=== PATIENT | female | born 1935 | race African-American/Black ===

== ENCOUNTER 2016-12-24 15:35 | Inpatient (IN) | payer MEDICARE, OTHER ==
--- NOTE | ~2016-12-24 | CT71 ---
[facility] A Service of [facility] & [facility] RADIOLOGY TEXT RESULTS PATIENT: LUCILA BLOCK LOCATION: [facility] 470-01 : 37 UNIT #: [id number] AGE: [address]: Rosa Lynne MD SEX: F ORDER DR: [id number] [facility] [address]. [place], [place] [address] [id number] I MR#: [id number] Acc #: [id number] NAME: LUCILA BLOCK. : 1935 SEX: F STUDY DATE/TIME: 12/24/2016 17:05 UNIT: CEDOF ROOM: 63439 STUDY DESCRIPTION: CT Head Wo Contrast Attending Physician: Ajay Avina M.D. Ordering Physician: Nimo Trevino M.D. Primary Care Physician: Vitaly Montenegro M.D. MEDICAL IMAGING REPORT This report is preliminary unless electronic signature is present EXAM CT brain without contrast 12/24/2016 COMPARISON 02/06/2009. HISTORY Generalized weakness after recent fall 1 week ago. TECHNIQUE Transaxial imaging of the brain was performed without contrast and compared to the patient's previous study. This CT examination was performed with one or more of the following radiation dose reduction techniques: automatic exposure control, adjustment of mA and/or kV according to patient size, and iterative reconstruction. FINDINGS There is generalized prominence of the ventricles and CSF containing spaces and this has increased significantly since the last study. Additionally, there are white matter changes in both hemispheres likely small vessel ischemia. The patient now has multiple lacunar infarctions in the basal ganglia and left thalamus which have appeared since the last study but appear largely chronic. Posterior fossa is unremarkable. There are atherosclerotic calcifications in the right vertebral artery and in the carotid siphons. The patient does have bilateral maxillary, bilateral ethmoid, and bilateral sphenoid sinus disease. No fractures are identified. Mastoid air cells are normally aerated. CONCLUSION 1. Generalized atrophy. Significant increase in small vessel deep white matter ischemic change in the periventricular region and development of multiple now chronic-appearing infarcts in both basal ganglia and in the left thalamus. [facility] A Service of [facility] & [facility] RADIOLOGY TEXT RESULTS PATIENT: LUCILA BLOCK LOCATION: [facility] 470-01 : 37 UNIT #: [id number] AGE: [address]: Rosa Lynne MD SEX: F ORDER DR: 2. Atherosclerotic calcifications in the carotid siphons and right vertebral. 3. Bilateral maxillary, ethmoid and sphenoid sinus disease. Dictated by... Jb Davis M.D. THIS IS AN ELECTRONICALLY VERIFIED REPORT Jb Davis M.D. at 12/27/2016 5:09 PM PEE/flaco TD: 12/25/2016 07:11 JOB #: [id number] MEDICAL IMAGING REPORT COPY
--- NOTE | ~2016-12-24 | EKG ---
PATIENT: LUCILA BLOCK UNIT #: [id number] Ventricular Rate: 64 BPM Atrial Rate: 64 BPM P-R Interval: 136 ms QRS Duration: 78 ms Q-T Interval: 432 ms QTC Calculation(Bezet): 445 ms P Austin: 71 degrees Calculated R Austin: 85 degrees Calculated T Austin: 56 degrees Diagnosis Line: Normal sinus rhythm Diagnosis Line: Baseline wander Nonspecific ST abnormality Diagnosis Line: Otherwise normal ECG Diagnosis Line: No previous ECGs available Diagnosis Line: Confirmed by ONEYDA HAMMONDS MD ([id number]) on 12/27/2016 Diagnosis Line: 7:23:01 AM INTERPRETING MD: NASRA PABON
--- NOTE | ~2016-12-24 | EKG ---
PATIENT: LUCILA BLOCK UNIT #: [id number] Ventricular Rate: 65 BPM Atrial Rate: 65 BPM P-R Interval: 148 ms QRS Duration: 84 ms Q-T Interval: 464 ms QTC Calculation(Bezet): 482 ms P Clayton: 75 degrees Calculated R Clayton: 84 degrees Calculated T Clayton: 70 degrees Diagnosis Line: Normal sinus rhythm Diagnosis Line: Nonspecific ST abnormality Otherwise normal ECG Diagnosis Line: When compared with ECG of 24-DEC-2016 15:03, Diagnosis Line: (unconfirmed) Diagnosis Line: No significant change was found Diagnosis Line: Confirmed by ONEYDA HAMMONDS MD ([id number]) on 12/27/2016 Diagnosis Line: 7:31:36 AM INTERPRETING MD: NASRA PABON
--- NOTE | ~2016-12-24 | CR63 ---
[facility] A Service of [facility] & [facility] RADIOLOGY TEXT RESULTS PATIENT: LUCILA BLOCK LOCATION: [facility] 470-01 : 37 UNIT #: [id number] AGE: [address]: Rosa Lynne MD SEX: F ORDER DR: [id number] [facility] [address] [place], [place] [address] [id number] I MR#: [id number] Acc #: [id number] NAME: LUCILA BLOCK : 1935 SEX: F STUDY DATE/TIME: 12/26/2016 14:32 UNIT: [facility] ROOM: [facility] STUDY DESCRIPTION: CR Chest 2 View Attending Physician: Rosa Lynne M.D. Ordering Physician: Ajay Avina M.D. Primary Care Physician: Vitaly Montenegro M.D. MEDICAL IMAGING REPORT This report is preliminary unless electronic signature is present EXAM AP and lateral chest 12/26/2016 HISTORY Cough and congestion and shortness of air and weakness for 3 weeks. FINDINGS 2 views of the chest demonstrate consolidation or atelectasis in the retrocardiac left lower lobe with limited evaluation of the left base due to under penetration. There is increased density in the left base compared to 12/24/2016. Probable small bilateral pleural effusions. Mild cardiac enlargement. Pulmonary vascularity is within normal limits. Moderate right thoracic curve. IMPRESSION 1. Increasing dense consolidation or atelectasis in the retrocardiac left lower lobe. 2. Probable small bilateral pleural effusions. 3. Mild cardiac enlargement. Dictated by... Prasad Platt M.D. THIS IS AN ELECTRONICALLY VERIFIED REPORT Prasad Platt M.D. at 12/27/2016 12:33 PM MARIA LUZ/jj TD: 12/27/2016 10:23 JOB #: [id number] MEDICAL IMAGING REPORT COPY
--- NOTE | ~2016-12-24 | CR72 ---
[facility] A Service [facility] RADIOLOGY TEXT RESULTS PATIENT: LUCILA BLOCK LOCATION: [facility] : 37 UNIT #: [id number] AGE: [address]: Ajay Avina MD SEX: F ORDER DR: [id number] [facility] [address]. [place], [place] [address] [id number] I MR#: [id number] Acc #: [id number] NAME: LUCILA BLOCK. : 1935 SEX: F STUDY DATE/TIME: 12/24/2016 14:55 UNIT: CEDOF ROOM: 88913 STUDY DESCRIPTION: CR Chest Single View Portable Attending Physician: Irene Hernandez M.D. Ordering Physician: Nimo Trevino M.D. Primary Care Physician: Vitaly Montenegro M.D. MEDICAL IMAGING REPORT This report is preliminary unless electronic signature is present EXAM Portable chest. DATE OF EXAM 12/24/2016 HISTORY Shortness breath, cough and weakness over the past 3 days. COMPARISON 10/08/2007 TECHNIQUE Single view chest was obtained. FINDINGS The patient is rotated to the left. Cardiomegaly is noted. The right lung is clear. No definite left-sided infiltrates are seen. Vascular markings are normal. IMPRESSION Cardiomegaly. The patient is rotated to the left. No definite infiltrates are seen. No definite changes are noted since the previous exam. Dictated by... Alireza Hanley M.D. THIS IS AN ELECTRONICALLY VERIFIED REPORT Alireza Hanley M.D. at 12/26/2016 9:40 PM RLF/jenyt [facility] A Service [facility] RADIOLOGY TEXT RESULTS PATIENT: LUCILA BLOCK LOCATION: [facility] 470-01 : 37 UNIT #: [id number] AGE: [address]: Ajay Avina MD SEX: F ORDER DR: TD: 12/24/2016 21:12 JOB #: [id number] MEDICAL IMAGING REPORT COPY
--- NOTE | ~2016-12-24 | US37 ---
[facility] A Service of [facility] RADIOLOGY TEXT RESULTS PATIENT: LUCILA BLOCK LOCATION: [facility] 470-01 : 37 UNIT #: [id number] AGE: [address]: Rosa Lynne MD SEX: F ORDER DR: [id number] [facility] [address] [address] [id number] I MR#: [id number] Acc #: [id number] NAME: LUCILA BLOCK. : 1935 SEX: F STUDY DATE/TIME: 12/26/2016 8:48 UNIT: [facility] ROOM: [facility] STUDY DESCRIPTION: US Carotid W/Doppler Bilateral Attending Physician: Rosa Lynne M.D. Ordering Physician: Radhames Jones M.D. Primary Care Physician: Todd Montenegro MEDICAL IMAGING REPORT This report is preliminary unless electronic signature is present EXAM Carotid ultrasound with Doppler, 12/26/2016 HISTORY 81-year-old female with syncope for 2-3 weeks. Confusion. Heart disease and congestive heart failure. Hypertension and hypercholesterolemia. COMPARISON Carotid duplex ultrasound 10/11/2007 FINDINGS Real time lang-scale, color Doppler, spectral Doppler analysis of bilateral carotid arteries was performed. There is mild plaque noted in both common carotid arteries, carotid bulbs, internal carotid arteries and external carotid arteries. Peak systolic velocities are as follows: Right common carotid artery 1.57 meters per second. Right internal carotid artery 1.32 meters per second. Left common carotid artery 1.33 meters per second. Left internal carotid artery 1.16 meters per second. ICA/CCA ratio measures 0.84 on the right and 0.7 on the left. There is evidence of 50%-69% stenosis more proximally in the right common carotid artery and 50%-69% stenosis in the region of the carotid bulb and proximal right ICA based on NASCET criteria. There is evidence of a more proximal stenosis of 50%x69% in the left common carotid artery based on NASCET criteria. Antegrade vertebral flow was present bilaterally. IMPRESSION [facility] A Service of [facility] RADIOLOGY TEXT RESULTS PATIENT: LUCILA BLOCK LOCATION: [facility] 470-01 : 37 UNIT #: [id number] AGE: [address]: Rosa Lynne MD SEX: F ORDER DR: 1. 50%-69% stenosis in the proximal right common carotid artery by NASCET criteria. 2. 50%-69% stenosis in the region of the right carotid bulb and proximal right ICA based on NASCET criteria. 3. 50%-69% stenosis in the proximal left common carotid artery based on NASCET criteria. Dictated by... Esequiel Hood M.D. THIS IS AN ELECTRONICALLY VERIFIED REPORT Esequiel Hood M.D. at 12/28/2016 8:28 AM SHANIQUA/bucky TD: 12/27/2016 09:01 JOB #: [id number] MEDICAL IMAGING REPORT Page 1 of 1 COPY
--- NOTE | ~2016-12-24 | CO ---
Unit #: [id number] #: [id number] Patient: LUCILA WILLARD [id number] [address] [place], [place] [address] [id number] I MR#: [id number] NAME: LUCILA WILLARD. ROOM: 470 Age: 81 Sex: F Admission Date: 12/25/2016 : 1935 Attending Physician: Ajay Avina M.D. Primary Care Physician: Vitaly Montenegro M.D. Consultation Date: 12/25/2016 CONSULTATION REPORT REASON FOR CONSULT Acute on chronic kidney disease. HISTORY OF PRESENT ILLNESS Ms. Willard is a 81-year-old female with some baseline dementia, who was brought in basically for failure to thrive. Overall, the patient is a poor historian and states that she just came in because she "felt sick." She had also been complaining about some underlying weakness and had a fall at home about two weeks ago according to the admission records. Last hospitalization was in 2016 at [facility] for altered mental status at that time with a UTI. The patient does complain about some breathing issues this morning and she does have a cough. She had reported a poor appetite when coming in, but no vomiting or diarrhea. No urinary complaints. I do note that she was taking some Advil p.r.n. at home. It is not clear how much she was actually taking. To my knowledge, she has no history of kidney stones and she denied these as well. She has been getting fluids overnight and a creatinine has come down some. PAST MEDICAL HISTORY Significant for chronic kidney disease, stage 3; hypertension; diabetes; proteinuria; prior tobacco abuse with probable COPD; history of stroke and TIA; degenerative joint disease; gout; hyperlipidemia; peripheral vascular disease; hypothyroidism; dementia; and colon cancer. PAST SURGICAL HISTORY Colon resection, cataract surgery, hysterectomy, appendectomy. HOME MEDICATIONS Advil p.r.n., aspirin daily, Restasis eye drops, Aricept 10 mg a day, Coreg 25 mg b.i.d., Ditropan 5 mg at bedtime, Norvasc 2.5 mg a day, Celexa 10 mg a day, NovoLog insulin b.i.d., Advil p.r.n., Benadryl p.r.n. ALLERGIES She has no known drug allergies. FAMILY HISTORY There is a family history of hypertension and diabetes. She does not think there is any family history of kidney disease or dialysis. SOCIAL HISTORY The patient lives with her granddaughter. She is a former smoker. She cannot remember how long it has been since she quit. No alcohol or drug use. She is a full code at this time. Unit #: [id number] #: [id number] Patient: LUCILA WILLARD REVIEW OF SYSTEMS A complete 12-point review of systems was difficult secondary to her mental status and underlying dementia. She denies any headaches or dizziness. No nosebleed. No sore throat or earache. No palpitations. No hemoptysis. No bright red blood per rectum or melena. No dysuria or hematuria. No swelling. No rashes or itching. No flank pain. No fevers or chills. No weight loss. No bleeding issues. No intolerance to heat or cold. Unless otherwise indicated, the review of systems was negative. PHYSICAL EXAMINATION VITAL SIGNS: The patient is afebrile. Pulse 62; respiratory rate 20; blood pressure 149/106, highest blood pressure has been 192/78. GENERAL: This is a pleasant 81-year-old female, lying on her side in bed, alert and in no acute distress. HEENT: Head is atraumatic and normocephalic. Eyes show pink conjunctivae with no scleral icterus. No nasal drainage or nosebleed. Oropharynx is moist. NECK: Shows no rigidity. HEART: Regular rate and rhythm with distant S1 and S2. No gallop or rub appreciated. No significant murmur. LUNGS: Have bilateral diffuse expiratory wheezing with some rhonchi. Breathing is unlabored at rest. ABDOMEN: Obese, soft, nontender. Bowel sounds are present. EXTREMITIES: No lower extremity cyanosis or pitting edema. SKIN: Dry without rashes. MUSCULOSKELETAL: No CVA tenderness to palpation. NEUROLOGIC: Cranial nerves appear grossly intact. LYMPHATIC: There is no neck or cervical lymphadenopathy. PSYCHIATRIC: Mood and affect appear normal. She does appear to be alert and mostly oriented. DIAGNOSTIC STUDIES LABORATORY RESULTS: Hemoglobin A1c 5.8. CK level 260. Chemistry this morning noteworthy for a potassium of 3.7, bicarb 21, creatinine down to 2.2, albumin just 2.3, phosphorus 4.2. Cholesterol 137, LDL of 79. Troponin 0.38. CBC was unremarkable. TSH level was normal. UA on admission showed 3+ protein with a few red blood cells and some hyaline casts. Flu screen negative. Admission creatinine was 2.7. Prior creatinine in our system here was 1.5 in 02/2009, but it had been as high as 1.8 during that admission. She did have a 24-hour urine protein collection in 10/2007 that was 290 mg. urinalyses here have consistently shown some proteinuria. IMAGING STUDIES: CT of the head showed atrophy and nothing acute. Chest x-ray showed no acute disease, but cardiomegaly. Prior kidney ultrasound in 10/2007 showed a small cyst in the left kidney. ASSESSMENT AND PLAN 1. Acute kidney injury on underlying chronic kidney disease, stage 3. It does look like she has a baseline chronic kidney disease based on old checks. Certainly, she could have some progression of her kidney disease with her diabetes and hypertension over the last eight years, so it is not known what her exact baseline is now. She may have had a little acute kidney injury from poor p.o. intake, which seems to have gotten better with fluids. I will discontinue her fluids due to her shortness of breath. We await results of kidney ultrasound. I will be quantitating her urinary protein and we do need to get better control of her blood pressure, which may be the biggest issue with her kidneys. Unit #: [id number] #: [id number] Patient: LUCILA WLILARD 2. Hypertension. Dr. Avina has already raised her blood pressure medicines and we will monitor response. 3. Proteinuria. It is not clear why she is not on an MOISÉS inhibitor or an angiotensin receptor tona. We would like to consider this during the course of this admission, but if she needs a heart catheterization, we might want to hold off on this for the time being. 4. Non ST-elevation myocardial infarction with Cardiology seeing. 5. Probable chronic obstructive pulmonary disease with prior tobacco abuse. 6. History of stroke in the past. 7. Diabetes with apparent good control based on her hemoglobin A1c. 8. Shortness of air. We will stop her fluids and give her a dose of Lasix. Chest x-ray was noted as above. This may be related to her heart issues and we will have to check her most recent echo that will be ordered here. We would like to thank Dr. Hernandez for this consult and the opportunity to participate in the evaluation and care of Ms. Willard. Dictated by... Zoltan Moore Jr., M.D. PIPE/mahesh TD: 12/26/2016 02:08 JOB #: [id number] CONSULTATION REPORT X Zoltan Moore MD X CONSULTATION REPORT
--- NOTE | ~2016-12-24 | CO ---
Unit #: [id number] #: [id number] Patient: LUCILA BLOCK [id number] [address] [place], [place] [address] [id number] I MR#: [id number] NAME: LUCILA BLOCK. ROOM: 470 Age: 81 Sex: F Admission Date: 12/24/2016 : 1935 Attending Physician: Rosa Lynne M.D. Primary Care Physician: Todd Montenegro CONSULTATION REPORT HISTORY OF PRESENT ILLNESS This is a 81-year-old female with a past medical history of dementia, hypertension, hyperlipidemia, diabetes, peripheral vascular disease, colon cancer, frequent falls, hypothyroidism. She cannot tell me much about her medical history or what medications she is on and who her doctors are. She has been sick with complaints of congestion, productive cough, and shortness of breath for the last 4 to 5 days, so she decided to come to the ER for evaluation of these symptoms. While in the ER, her troponins was found to be elevated at 0.4. She denies any chest pain. She denies nausea. She denies vomiting. She denies diaphoresis. She has reported that she has passed out with loss of consciousness one to two times in the past with her last syncopal episode 2 to 3 weeks ago. She has chronic urinary incontinence. She does have complaint of some shortness of breath and throat tightness. She denies any loss of bowel and bladder function during the syncopal episode, but like previously stated she has chronic urinary incontinence. Apparently, her family states that she has had increased confusion for 3 to 4 weeks in addition to productive cough and shortness of breath. She has not had reported any fever or decreased appetite or weight loss to her family. EKG done in the ER showed normal sinus rhythm with a rate of 64 beats per minute. No obvious ST depression were seen. Cardiology consult was asked for elevated troponin. While also in the ER after she was admitted, her blood glucose was noted to be 35. This was treated appropriately per nursing protocol. Cardiac testing includes questionable cardiac cath approximately 5 years ago at [facility], but there are no records. Dr. Fisher tried to obtain these records. Her family states that in 05/2016, she was admitted at [facility] and since then she has really not been doing that well at all. PAST SURGICAL HISTORY Colon resection, cataract, hysterectomy, appendectomy. SOCIAL HISTORY She lives with her granddaughter. She uses a cane for ambulation. She is a former smoker. No alcohol use and she is a full code. FAMILY HISTORY Notable for diabetes and hypertension upon chart review. ALLERGIES Unit #: [id number] #: [id number] Patient: LUCILA BLOCK No known allergies. HOME MEDICATIONS Advil 200 mg tablet as needed every 6 hours p.r.n. for pain, Aspirin 81 daily, Restasis eye drops daily, donepezil 10 mg daily, Coreg 25 b.i.d., Ditropan 5 mg in the evening, Norvasc 2.5 daily, citalopram 10 mg daily, NovoLog 70/30 of 15 units subcutaneous b.i.d., Benadryl 25 mg q.4 hours as needed p.r.n. for allergies. REVIEW OF SYSTEMS A complete review of systems is negative except noted in the HPI. The patient was unable to provide much history to me as she is confused and has altered mental status. PHYSICAL EXAMINATION VITAL SIGNS: Include temperature afebrile 98.3, pulse 69, respirations 16, blood pressure 155/62, oxygen saturation is 95% on room air. GENERAL: She is an female, who is in moderate respiratory distress upon being seen in the ER. She is well developed and well nourished. LUNGS: Bilateral rales, crackles with rhonchi, labored breathing, inspiratory and expiratory wheezing. CARDIOVASCULAR: She is in a regular rate and rhythm with S1, S2 noted and positive for systolic ejection murmur heard best at the apex. ABDOMEN: Soft and obese. Positive bowel sounds. EXTREMITIES: Show 1+ edema with positive pulses. SKIN: Warm and dry. NEUROLOGIC: She is actually able to tell me where she is, who she is, but she was unsure of any historical details. DIAGNOSTIC STUDIES IMAGING STUDIES: Chest x-ray shows no acute findings. CT of the head was done and showed no acute abnormality. CARDIOVASCULAR STUDIES: EKG shows normal sinus rhythm with a rate of 64 beats per minute, possible left atrial enlargement. There appeared to be like 0.[address] depression in inferior leads, but this is unchanged from her previous EKG. LABORATORY RESULTS: Include sodium 141, potassium 3.7, chloride 114, CO2 of 21, BUN 29, creatinine 2.2, glucose 147. Troponin was initially found to be 0.22, peaked to 0.40, and today is 0.38. A1c was 5.8. TSH is 1.39. Total cholesterol 137, triglycerides 147, LDL 79, HDL 29. Influenza A and B were both negative. WBC 5.7, platelets 193, hemoglobin 13.2, hematocrit 40.9. IMPRESSION 1. Acute myocardial infarction type 2 likely elevated troponin related to acute kidney injury and volume overload. 2. Diabetes. 3. Hypertension. 4. Obesity. 5. Acute kidney injury, creatinine 2.2 with chronic kidney disease stage 3, possible acute congestive heart failure. 6. Altered mental status. 7. Peripheral vascular disease. 8. History of colon cancer, status post resection and chemotherapy. 9. History of hypothyroidism. Unit #: [id number] #: [id number] Patient: LUCILA BLOCK 10. Dementia. PLAN She is being admitted in observation to an intermediate level bed. She can have a heart healthy diet after a bedside swallow study per Dr. Fisher. Cardiology will obtain a 2D echo to evaluate her valves since there were no records from her most recent admission to [facility] in 05/2016. We will check a 12-lead EKG in the a.m. and trend her troponins every 6 hours. Currently, her troponin has plateaued with peak of 0.40. We will check a BMP and discontinue her IV fluids, magnesium level in the morning, troponin in the morning, and increase her hydralazine to 50 mg p.o. t.i.d. with parameters if hypotension occurs for her hypertension. Further plan, once echo results are known and seen by Dr. Queen. However, she will possibly need a cath on Tuesday after her renal status improve. We agree with diuresing her. She is currently on Lasix. She has bilateral rales, rhonchi, productive sputum, and lower extremity edema. We will monitor her electrolytes closely, replace as needed. Restrict her fluids and continue Coreg, Norvasc, and increase hydralazine for blood pressure control. Dictated by... Vania Delgado APRN for Germán Queen M.D. CORIN/mahesh TD: 12/28/2016 00:05 JOB #: [id number] CONSULTATION REPORT Page 1 of 1 X X CONSULTATION REPORT
--- NOTE | ~2016-12-24 | HP ---
Unit #: [id number] #: [id number] Patient: LUCILA BLOCK [id number] [place] [address] [place], [place] [address] [id number] I MR#: [id number] NAME: LUCILA BLOCK. ROOM: 52270 Age: 81 Sex: F Admission Date: 12/24/2016 : 1935 Attending Physician: Irene Hernandez M.D. Primary Care Physician: Vitaly Montenegro M.D. HISTORY AND PHYSICAL CHIEF COMPLAINT Generalized weakness. HISTORY OF PRESENT ILLNESS The patient is a 81-year-old female with past medical history of diabetes, hypertension, hyperlipidemia, peripheral vascular disease, gout, degenerative joint disease, colon cancer, dementia, hypothyroidism, who presented to the emergency department for evaluation of the above. History is obtained from chart review and discussion with the ER staff as well as from the patient and her son and daughter who are at bedside. The patient was apparently hospitalized at [facility] in May of 2016 for altered mental status, hypoglycemia, uncontrolled high blood pressure and urinary tract infection per the family (no records). She was then discharged to rehab and ultimately home. She has had generalized weakness and falls since that time. The last fall was apparently two weeks prior to admission. The reason for coming to the hospital today was for generalized weakness that has been increasing. She has also had increased confusion. Family states that she has had a three to four week history of intermittently productive cough and shortness of breath. She has not had any fever. She has had decreased appetite for the past week. She has had an issue with her teeth and has not wanted to eat. There has been no vomiting or diarrhea. She is incontinent of urine but denies any urinary symptoms. In the emergency department a CT of the head was done and showed no acute abnormality. Chest x-ray showed nothing acute. Laboratory is notable for creatinine of 2.7, initial troponin was 0.22. EKG showed normal sinus rhythm with a rate of 64 beats per minute. She is being admitted to [facility] for evaluation and further treatment. At the time of my evaluation an Accu-Chek was done and noted to be 35. PAST MEDICAL HISTORY 1. Admission to [facility] May of 2016 for hypoglycemia, uncontrolled diabetes, altered mental status, urinary tract infection. She was discharged to rehab (no records). 2. Admission to [facility] February 06 through February 10, 2009 for possible TIA. 3. Diabetes. 4. Degenerative joint disease. 5. Gout. 6. Hypertension. 7. Hyperlipidemia. Unit #: [id number] #: [id number] Patient: LUCILA BLOCK 8. Peripheral vascular disease. 9. Hypothyroidism. 10. Dementia. The patient is oriented to person and place. She may or may not know the year at baseline. 11. Colon cancer, status post resection and chemotherapy. PAST SURGICAL HISTORY 1. Colon resection. 2. Cataract surgery. 3. Hysterectomy. 4. Appendectomy SOCIAL HISTORY The patient lives with her granddaughter. She walks with a cane. She is a former smoker. There is no alcohol use. Her code status is a full code. FAMILY HISTORY Family history is notable for diabetes and hypertension. ALLERGIES No known allergies. HOME MEDICATIONS Home medications include: 1. Advil p.r.n. 2. Aspirin 81 mg daily. 3. Restasis eye drops daily. 4. Donepezil 10 mg daily. 5. Coreg 25 mg b.i.d. 6. Ditropan 5 mg q.p.m. 7. Norvasc 2.5 mg daily. 8. Escitalopram 10 mg daily. 9. NovoLog 70/30 15 units subcu b.i.d. 10. Advil 200 mg q.6 h. p.r.n. 11. Benadryl 25 mg q.4 h. p.r.n. REVIEW OF SYSTEMS A complete review of systems is negative except as indicated in the HPI. The patient had a cardiac catheterization more than five years ago [address] [facility]. DIAGNOSTIC STUDIES CARDIOVASCULAR: EKG shows normal sinus rhythm with a rate of 64 beats per minute. IMAGING: Chest x-ray shows cardiomegaly but no acute abnormality. LABORATORY: Comprehensive metabolic panel notable for glucose of 69, BUN and creatinine 29 and 2.7 respectively, total protein is 5.7, albumin is 2.7. Complete blood count is essentially normal. Troponin initially was 0.22, repeat 0.13. Urinalysis notable for 3+ protein, 5 to 10 red blood cells. Rapid flu screen is negative. INR is 1.1. PHYSICAL EXAMINATION VITAL SIGNS: Temperature is 98.3. Pulse 69. Respirations 16. Blood pressure 155/62. Oxygen saturation 95% on room air. GENERAL: The patient is an -Somali female who is sleeping but wakes to voice. Unit #: [id number] #: [id number] Patient: LUCILA BLOCK HEENT: The head is atraumatic. Mucous membranes are moist. NECK: Neck is supple. Trachea is midline. CARDIOVASCULAR: Regular rate and rhythm. LUNGS: Demonstrate a few scattered rhonchi. Breathing is not labored with conversation. ABDOMEN: Abdomen is soft, nontender, with bowel sounds present in all four quadrants. EXTREMITIES: Extremities are nontender with pedal edema. NEUROLOGIC: The patient is awake. She is oriented to person and place. She knew it was Tuesday but was not sure of the month or year. PSYCHIATRIC: The patient is cooperative. SKIN: Skin of examined areas is warm and dry. ASSESSMENT The patient is a 81-year-old female with: 1. Generalized weakness. 2. Altered mental status. 3. Hypoglycemia. The patient received an amp of D50 in the emergency department. She passed a bedside swallow and is currently eating crackers and peanut butter. A repeat Accu-Chek is pending. 4. Acute kidney injury. The patient's creatinine was 1.5 on February 10, 2009. It is 2.7 today. It appears to be prerenal in etiology as the patient has not been eating but she may have baseline renal impairment as well as it looks like her creatinine has been as high as 2.1 in the past. She has seen Dr. Avelar. Family is not aware of her seeing anybody on a regular basis. 5. Elevated troponin, initially 0.22 with a repeat 0.13. She had a cardiac catheterization more than five [address] ago [address] [facility]. 6. Hypertension. 7. Hyperlipidemia. 8. Peripheral vascular disease. 9. Gout. 10. Degenerative joint disease. 11. Colon cancer, status post resection and chemotherapy. 12. Dementia. 13. Hypothyroidism. 14. Former smoker. PLAN 1. Admit for observation to intermediate level. 2. Healthy heart consistent carb diet if passes bedside swallow. 3. Bedrest. 4. Fall precautions. 5. PT and OT to evaluate and treat. 6. TSH, B12 and folate. 7. Neuro checks. 8. Frequent Accu-Cheks. 9. Hold insulin. 10. Hemoglobin A1C. 11. TSH. 12. Urine sodium, creatinine and eosinophils. 13. Renal ultrasound for further evaluation of acute kidney injury. 14. Check CPK. 15. No NSAIDs. 16. Normal saline at 75 mL an hour. 17. Serial cardiac enzymes. 18. Fasting lipid panel. Unit #: [id number] #: [id number] Patient: LUCILA BLOCK 19. Consult Dr. Queen about elevated troponin. 20. Supplemental oxygen. 21. Get records from [facility] including cardiac cath. 22. Repeat labs in the morning. 23. SCDs for DVT prophylaxis. 24. Additional workup and consultants based on above. Dictated by Marcelle Braga/keyana TD: 12/24/2016 22:47 JOB #: [id number] HISTORY AND PHYSICAL X Irene Hernandez MD X HISTORY AND PHYSICAL
--- NOTE | ~2016-12-24 | A ---
[facility] Nutrition Therapy DATE: 12/27/16 Patient: LUCILA BLOCK Physician: MELODY Address: [address] [place] [address] Room/Bed: [address] [place] [address], Zip: [place] [address] Admit Date: 12/24/16 Date of : 37 Height: 5 7 Weight: 186 84.6 NUTRITIONAL ASSESSMENT: REASON: 4 NUTRITION RISK PT RE: WEIGHT LOSS + POOR PO INTAKE, ALSO CONSULT RECEIVED PT IS 81 Y.O. FEMALE ADMITTED FOR GENERALIZED WEAKNESS PMH: DEMENTIA, CVA, DM, CKD STAGE 3, HTN, TIA, COPD, DJD, COLON CA S/P RESECTION, HLD, GOUT, PVD, HYPOTHYROIDISM Anthropometrics: 5'7", WT: 186-215# (85 KG-98 KG) (WEIGHTS HAVE RANGED SINCE ADMIT), BMI: 29.1-33.7 Labs: GLU: 156, BUN: 37, CREAT: 2.6, CA+:8.1, ALB: 2.4, GFR: 22.8 Meds: LIPITOR, LEVEMIR, NOVOLOG, NACL I/O & Bowel function: 620/1350 Skin Integrity: NO KNOWN SKIN ISSUES Estimated Nutrition Needs: INCREASED NEEDS 2' ?WEIGHT LOSS NOTED Assessment: CHART REVIEWED AND EVENTS NOTED. PT SEEN FOR WEIGHT LOSS + POOR PO INTAKE. PT SLIGHTLY CONFUSED AT TIME OF VISIT. PT REPORTS DECREASED PO INTAKE 2' DECREASED APPETITE PAST WEEK D/T "NOT FEELING WELL". PT ADDS SHE DOES NOT LIKE THE FOOD HERE AT [facility]. PT REPORTS WEIGHT LOSS BUT UNABLE TO IDENTIFY AMOUNT AND TIME FRAME (H DEMENTIA). PT'S LAST WEIGHTS WERE RECORDED BACK IN 2008. THIS RD ENCOURAGED ADEQUATE KCAL AND PROTEIN INTAKE, PT AGREED TO ENSURE PUDDING BID, RD WILL ORDER. PT NOT APPROPRIATE FOR DIET EDUCATION AT THIS TIME. Dx: INADEQUATE PROTEIN-ENERGY INTAKE R/T DECREASED APPETITE, OVERALL CURRENT CLINICAL CONDITION AEB PT REPORT ABOVE. Intervention: 1. 2 GM NA DIET 2. ENSURE PUDDING BID Monitoring, Evaluation and Goals: 1. PO INTAKE; CONSUME >50% OF MEALS W/NO C/O N/V/D 2. WEIGHTS; PREVENT ANY FURTHER UNINTENTIONAL WEIGHT LOSS 3. LABS; WNL 4. GI; PROMOTE REGULAR GI FUNCTION MONITOR: [facility] Nutrition Therapy DATE: 12/27/16 Patient: LUCILA BLOCK Physician: MELODY Address: [address] [place] [address] Room/Bed: [address] [place] [address], Zip: [place] [address] Admit Date: 12/24/16 Date of : 37 Height: 5 7 Weight: 186 84.6 -PO INTAKE/APPETITE -WEIGHTS -SUPPLEMENT INTAKE Recommendations: 1. PLEASE ORDER VARSHA ENSURE PUDDING BID W/MEALS FOR SUPPLEMENTAL NUTRITION 2. RECOMMEND TO CHANGE CURRENT DIET ORDER TO REGULAR, IF PO INTAKE MINIMAL 3. APPRECIATE FAMILY AND STAFF TO ENCOURAGE ADEQUATE KCAL AND PROTEIN INTAKE RD WILL F/U PER PROTOCOL PT IS MILD/MODERATELY COMPROMISED Respectfully, EDITH VELASQUEZ MS, RD, LD Food and Nutritional Services [facility] cc: client file
--- NOTE | ~2016-12-24 | DS ---
Unit #: [id number] #: [id number] Patient: LUCILA WILLARD [id number] [address] [id number] I MR#: [id number] NAME: LUCILA WILLARD. ROOM: 470 Age: 81 Sex: F Admission Date: 12/24/2016 : 1935 Discharge Date: 12/28/2016 Attending Physician: Rosa Lynne M.D. Primary Care Physician: Vitaly Montenegro M.D. DISCHARGE SUMMARY PRINCIPAL DIAGNOSES 1. Non ST segment elevation myocardial infarction type 2. 2. Acute kidney injury, prerenal. 3. 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 Discharge creatinine is 2.5. Baseline appears to be approximately 2.2. 4. Hypoglycemia, insulin induced. 5. Diabetes mellitus type 2, insulin requiring and too tightly controlled with hemoglobin A1c of 5.8. 6. Hypertension. 7. Chronic obstructive pulmonary disease. 8. Toxic metabolic encephalopathy secondary to non ST segment elevation myocardial infarction and hypoglycemia resolved. 9. Vascular dementia. 10. Proteinuria. 11. Moderate protein malnutrition. 12. Peripheral arterial disease with both right and left carotid stenoses of 59% to 69%. 13. Deconditioning. 14. Obesity. 15. Depression. 16. Urge incontinence. 17. Hyperlipidemia. CONSULTANTS Dr. Queen - cardiology and Dr. Moore - nephrology. PROCEDURES 1. 2D dimensional echocardiogram on 12/26/2016 with ejection fraction of 60% to 65%. Moderate to severe concentric left ventricular hypertrophy noted. Left ventricular size is decreased. Impaired relaxation noted. Mild tricuspid regurgitation. Mild to moderate pericardial effusion. 2. Chest x-ray on 12/26/2016 with small bilateral pleural effusions, atelectasis in the retrocardiac left lower lobe noted. Cardiac enlargement noted. 3. Bilateral carotid Doppler with 50% to 69% stenosis of the proximal right common carotid artery and right carotid bulb and proximal right ICA. 50% to 69% stenosis of the proximal left common carotid artery. Bilateral renal ultrasound on 12/25/2016, which was normal. 4. CT of the head without contrast on 12/24/2016 with generalized atrophy. Small vessel deep white matter ischemic change noted. Chronic infarction of both basal ganglia in the left thalamus noted. Atherosclerotic calcification of carotid siphons and right vertebral artery noted. Bilateral sinus disease noted. Unit #: [id number] #: [id number] Patient: LUCILA WILLARD CLINICAL HISTORY AND HOSPITAL COURSE Ms. Willard is a 81-year-old -Malawian female brought to the emergency department with increasing weakness. She has been having increasing weakness and falls since 05/2016. She has also had intermittently productive cough and shortness of breath and decreased appetite. She has not been eating well. In the emergency department creatinine was elevated at 2.7 up from a last known baseline of 1.9 and troponin was mildly elevated at 0.22. The patient was subsequently admitted. In regards to patient's elevated troponin cardiology was consulted. Troponin peaked at 0.22 then decreased. EKG did not reveal any ST abnormalities and echo was as noted above. Given patient's other medical conditions and the renal failure, it is felt that she probably has a very small type 2 NSTEMI and will continue only medical management at this point. In regards to the patient's renal dysfunction, Dr. Moore was consulted. The patient was placed on diuretics due to their concern but perhaps she has pulmonary edema, but renal function worsened and diuretics were held. On the day of discharge, creatinine is stable at 2.5 and this appears to be very close to her baseline. She will followup with nephrology as an outpatient. I am going to hold MOISÉS inhibitor and/or ARB at this time due to renal dysfunction and perhaps it can be reinitiated as an outpatient. Patient also had significant hypertension but medications were adjusted and blood pressure is now well controlled. Patient's other chronic condition remained stable. She is seen by physical therapy who is suggesting rehab and she will be discharged to rehab when arranged. Patient did have hypoglycemia upon presentation. Her A1c is significantly low at 5.8 and I suspect she is having episodes of significant hypoglycemia at home, followed by hyperglycemia due to her insulin regimen of 70/30 at home. She has been changed to a four shot regimen here and sugars have been very stable in the 130s to 200 on this regimen. I think these sugars will remained controlled on a controlled diet. DISCHARGE CONDITION Stable. DISCHARGE STATUS Discharge to rehab. DISCHARGE MEDICATIONS 1. Combivent nebulizer treatments 3 mL 4 times daily p.r.n. for shortness of breath. 2. Lexapro 10 mg daily. 3. Coreg 25 mg b.i.d. 4. Norvasc 10 mg daily. 5. Aricept 10 mg daily. 6. Ditropan 5 mg each evening. 7. Lipitor 80 mg at bedtime. 8. Levemir 10 units subcutaneously at night. 9. NovoLog 5 units subcu t.i.d. with meals with an associated low dose sliding scale. Unit #: [id number] #: [id number] Patient: LUCILA WILLARD 10. Restasis one drop two both eyes daily. 11. Aspirin 81 mg daily. 12. Symbicort 80/4.5 two puffs b.i.d. 13. Bactroban. DISCHARGE INSTRUCTIONS Patient is instructed to follow a heart healthy CCV diet and she will continue Accu-Cheks a.c. and h.s. with sliding scale. She can increasing her activity as tolerated. FOLLOWUP The patient is to follow up with basic metabolic panel on 01/04/2017 with the results faxed to Dr. Dhiraj Avelar and/or Dr. Joel Moore. She should followup with Dr. Avelar in approximately four weeks and followup with Dr. Queen in approximately four weeks as well. Can re-evaluate for addition of MOISÉS or ARB in followup. She also needs outpatient referral to vascular surgery in regards to her right and left carotid arterial disease but given lack of stroke while hospitalized, I think this can be done as an outpatient. Dictated by... Rosa Lynne M.D. MAYELA/daniella TD: 12/28/2016 08:25 JOB #: [id number] DISCHARGE SUMMARY Page 1 of 1 X Rosa Lynne MD X DISCHARGE SUMMARY
--- NOTE | ~2016-12-24 | EKG ---
PATIENT: LUCILA BLOCK UNIT #: [id number] Ventricular Rate: 57 BPM Atrial Rate: 57 BPM P-R Interval: 158 ms QRS Duration: 80 ms Q-T Interval: 470 ms QTC Calculation(Bezet): 457 ms P [place]: 15 degrees Calculated R [place]: 104 degrees Calculated T [place]: 90 degrees Diagnosis Line: Sinus bradycardia Diagnosis Line: Rightward axis Diagnosis Line: Borderline ECG Diagnosis Line: When compared with ECG of 26-DEC-2016 07:26, Diagnosis Line: (unconfirmed) Diagnosis Line: No significant change was found Diagnosis Line: Confirmed by WILL VELA MD ([id number]) on Diagnosis Line: 12/27/2016 8:04:12 AM INTERPRETING MD: DANE PABON
--- NOTE | ~2016-12-24 | US77 ---
[facility] A Service of [facility] RADIOLOGY TEXT RESULTS PATIENT: LUCILA BLOCK LOCATION: [facility] 470 : 37 UNIT #: [id number] AGE: [address]: Ajay Avina MD SEX: F ORDER DR: [id number] [facility] [address] [facility] [place], [place] [address] [id number] I MR#: [id number] Acc #: [id number] NAME: LUCILA BLOCK. : 1935 SEX: F STUDY DATE/TIME: 12/25/2016 10:47 UNIT: [facility] ROOM: [facility] STUDY DESCRIPTION: US Kidney Bilateral Complete Attending Physician: Ajay Avina M.D. Ordering Physician: Irene Hernandez M.D. Primary Care Physician: Vitaly Montenegro M.D. MEDICAL IMAGING REPORT This report is preliminary unless electronic signature is present EXAM Bilateral renal ultrasound 12/25/2016 HISTORY 81-year-old female with acute kidney insufficiency. History of diabetes and hypertension. BUN 29, creatinine 2.2, GFR 27.7. COMPARISON Renal ultrasound 10/11/2007. FINDINGS Real time lang-scale and color Doppler imaging of the kidneys and urinary bladder was performed. Both kidneys are normal in size and contour. The right kidney measures 8.2 cm in length. The left kidney measures 8.6 cm in length. Cortical thickness and echogenicity are preserved bilaterally. No solid or cystic renal masses. No hydronephrosis. No abnormal calcifications. Urinary bladder grossly unremarkable. IMPRESSION Unremarkable renal ultrasound. Dictated by... Esequiel Hood M.D. THIS IS AN ELECTRONICALLY VERIFIED REPORT Esequiel Hood M.D. at 12/27/2016 7:43 AM SHANIQUA/flaco TD: 12/26/2016 09:16 JOB #: [id number] MEDICAL IMAGING REPORT [facility] A Service of [facility] RADIOLOGY TEXT RESULTS PATIENT: LUCILA BLOCK LOCATION: [facility] 01 : 37 UNIT #: [id number] AGE: [address]: Ajay Avina MD SEX: F ORDER DR: MINH
[2016-12-24 15:12] LABS: BASOPHIL# 0.1 X10e3 (0-0.3); BASOPHIL% 0.7 % (0-2.5); EOSINOPHIL# 0.1 X10e3 (0-0.7); EOSINOPHIL% 1.1 % (0.0-7.0); HEMOGLOBIN 13.5 gm/dL (12.0-16.0); LYMPHOCYTE# 0.5 X10e3 (1.0-3.5); LYMPHOCYTE% 7.2 % (17.0-45.0); MEAN CELL VOLUME 87.3 FL (83-96); MEAN CORPUSCULAR HGB CONC 32.1 g/dL (30-36); MEAN PLATELET VOLUME 8.9 FL (6.5-11.5); MONOCYTE# 0.9 X10e3 (0-1.0); MONOCYTE% 11.8 % (3.0-12.0); NEUTROPHIL# 5.7 X10e3 (1.5-7.1); NEUTROPHIL% 79.2 % (40-75); PLATELET COUNT 194 X10e3 (140-420); RED BLOOD COUNT 4.81 X10e (3.90-5.30); RED CELL DISTRIBUTION WIDTH 15.8 % (11.0-15.5); WHITE BLOOD COUNT 7.3 X10e3 (4.0-10.5)
[2016-12-24 15:14] LABS: POC - CKMB 5.4 ng/mL (0.0-7.9); POC - TROPONIN 0.22 ng/mL (<=0.05)
[2016-12-24 15:14] LABS: DIFF IND NO
[2016-12-24 15:22] LABS: INR 1.1
[~2016-12-24 15:35] MED LIST: ACETAMINOPHEN PR; ASPIRINEC PO; AVANDIA PO; COREG PO; GLUCOPHAGE XR500 MG PO; HUMULIN 70/30 V10 ML SUBQ; JANUVIA PO; LASIX PO; LIPITOR PO; LISINOPRIL PO; MAIL ORDER PHARMACY; MOBIC PO; PLAVIX PO; SYNTHROID PO; TRICOR PO; VASERETIC 10-251 TAB PO; ZOCOR PO; ZYLOPRIM PO
[2016-12-24 15:38] LABS: ALBUMIN SERUM 2.7 g/dL (3.5-5.0); BILIRUBIN, DIRECT 0.1 mg/dL (0.0-0.2); BILIRUBIN,INDIRECT 0.7 mg/dL (0.0-0.9); BILIRUBIN,TOTAL 0.8 mg/dL (0.2-2.0); BUN/CREATININE RATIO 10.74; CALCIUM SERUM 8.5 mg/dL (8.4-10.2); CREATININE SERUM 2.7 mg/dL (0.6-1.4); GLOM FILT RATE Estimated 21.9 mL/min (>60); POTASSIUM 3.8 mmol/L (3.5-5.1); PROTEIN TOTAL SERUM 5.7 g/dL (6.0-8.3)
[2016-12-24 16:56] LABS: URINE SOURCE CLEAN CATCH
[2016-12-24 17:03] LABS: URINE APPEARANCE CLOUDY; URINE BILIRUBIN NEG (NEG); URINE BLOOD TRACE (NEG); URINE COLOR YELLOW; URINE GLUCOSE NEG (NEG); URINE KETONE NEG (NEG); URINE LEUKOCYTE ESTERASE NEG (NEG); URINE NITRATE NEG (NEG); URINE PROTEIN 3+ (NEG); URINE SPECIFIC GRAVITY 1.022 (1.003-1.035); URINE UROBILINOGEN 0.2 MG/DL (NEG)
[2016-12-24 17:08] LABS: URINE BACTERIA AUWI NEG (NEGATIVE); URINE SQUAMOUS EPITHELIAL CELL MOD /[HPF]
[2016-12-24 17:08] LABS: INFLUENZA A NEG (NEG); INFLUENZA B NEG (NEG)
[2016-12-24 17:09] LABS: CULTURE INDICATED? NO
[2016-12-24] MEDS ORDERED: IBUPROFEN (18:20)
[2016-12-24] MEDS ORDERED: BAYER CHEWABLE81 MG PO (18:21)
[2016-12-24] MEDS ORDERED: RESTASIS32 EA OU (18:21)
[2016-12-24] MEDS ORDERED: DONEPEZIL HCL10 MG PO (18:21)
[2016-12-24] MEDS ORDERED: CARVEDILOL25 MG PO (18:22)
[2016-12-24] MEDS ORDERED: DITROPAN5 MG PO (18:22)
[2016-12-24] MEDS ORDERED: ESCITALOPRAM OX10 MG PO (18:23)
[2016-12-24] MEDS ORDERED: NOVOLOG7030 SUBQ (18:23)
[2016-12-24] MEDS ORDERED: NORVASC2.5 MG PO (18:23)
[2016-12-24] MEDS ORDERED: IBUPROFEN PO (18:30)
[2016-12-24] MEDS ORDERED: BENADRYL25 M1 PO (18:31)
[2016-12-24 19:35] LABS: POC - CKMB 3.3 ng/mL (0.0-7.9); POC - TROPONIN 0.13 ng/mL (<=0.05)
[2016-12-24 21:42] LABS: FOLATE (FOLIC ACID) 14.4 ng/mL (>5.8)
[2016-12-25 02:24] LABS: %MB 1.9 % (0.0-4.0); MB 4.9 ng/ml
[2016-12-25 07:13] LABS: BASOPHIL% 0.5 % (0-2.5); EOSINOPHIL# 0.2 X10e3 (0-0.7); EOSINOPHIL% 2.8 % (0.0-7.0); HEMATOCRIT 40.9 % (35.0-45.0); HEMOGLOBIN 13.2 gm/dL (12.0-16.0); LYMPHOCYTE# 0.7 X10e3 (1.0-3.5); LYMPHOCYTE% 12.3 % (17.0-45.0); MEAN CELL VOLUME 87.5 FL (83-96); MEAN CORPUSCULAR HEMOGLOBIN 28.1 PG (28-34); MEAN CORPUSCULAR HGB CONC 32.2 g/dL (30-36); MEAN PLATELET VOLUME 8.6 FL (6.5-11.5); MONOCYTE# 0.8 X10e3 (0-1.0); MONOCYTE% 14.7 % (3.0-12.0); NEUTROPHIL% 69.7 % (40-75); PLATELET COUNT 193 X10e3 (140-420); RED BLOOD COUNT 4.67 X10e (3.90-5.30); RED CELL DISTRIBUTION WIDTH 16.3 % (11.0-15.5); WHITE BLOOD COUNT 5.7 X10e3 (4.0-10.5)
[2016-12-25 07:21] LABS: DIFF IND NO
[2016-12-25 08:02] LABS: %MB 1.8 % (0.0-4.0); MB 4.7 ng/ml
[2016-12-25 08:07] LABS: ALBUMIN SERUM 2.3 g/dL (3.5-5.0); BILIRUBIN,TOTAL 0.5 mg/dL (0.2-2.0); BUN/CREATININE RATIO 13.18; CALCIUM SERUM 8.1 mg/dL (8.4-10.2); CREATININE SERUM 2.2 mg/dL (0.6-1.4); GLOM FILT RATE Estimated 27.7 mL/min (>60); PHOSPHOROUS 4.2 mg/dL (2.5-4.6); POTASSIUM 3.7 mmol/L (3.5-5.1); PROTEIN TOTAL SERUM 4.8 g/dL (6.0-8.3)
[2016-12-25 21:36] LABS: %MB 1.6 % (0.0-4.0); MB 4.8 ng/ml
[2016-12-26 03:28] LABS: CREATININE,RANDOM URINE 97 mg/dL; TOTAL PROTEIN,RANDOM URINE 196 mg/dl (<10)
[2016-12-26 03:46] LABS: ALBUMIN SERUM 2.4 g/dL (3.5-5.0); BILIRUBIN,TOTAL 0.6 mg/dL (0.2-2.0); BUN/CREATININE RATIO 13.63; CALCIUM SERUM 7.9 mg/dL (8.4-10.2); CREATININE SERUM 2.2 mg/dL (0.6-1.4); GLOM FILT RATE Estimated 27.7 mL/min (>60); MAGNESIUM 1.6 mg/dL (1.6-3.0); MB 5.3 ng/ml; POTASSIUM 3.7 mmol/L (3.5-5.1); PROTEIN TOTAL SERUM 5.2 g/dL (6.0-8.3)
[2016-12-27 03:29] LABS: BASOPHIL% 0.6 % (0-2.5); EOSINOPHIL# 0.2 X10e3 (0-0.7); EOSINOPHIL% 2.2 % (0.0-7.0); HEMOGLOBIN 13.5 gm/dL (12.0-16.0); LYMPHOCYTE# 0.6 X10e3 (1.0-3.5); LYMPHOCYTE% 8.7 % (17.0-45.0); MEAN CELL VOLUME 87.3 FL (83-96); MEAN CORPUSCULAR HEMOGLOBIN 28.1 PG (28-34); MEAN CORPUSCULAR HGB CONC 32.2 g/dL (30-36); MEAN PLATELET VOLUME 9.1 FL (6.5-11.5); MONOCYTE# 0.6 X10e3 (0-1.0); MONOCYTE% 8.3 % (3.0-12.0); NEUTROPHIL% 80.2 % (40-75); PLATELET COUNT 266 X10e3 (140-420); RED BLOOD COUNT 4.81 X10e (3.90-5.30); RED CELL DISTRIBUTION WIDTH 15.9 % (11.0-15.5); WHITE BLOOD COUNT 7.5 X10e3 (4.0-10.5)
[2016-12-27 03:31] LABS: DIFF IND NO
[2016-12-27 03:59] LABS: BUN/CREATININE RATIO 14.23; CALCIUM SERUM 8.1 mg/dL (8.4-10.2); CREATININE SERUM 2.6 mg/dL (0.6-1.4); GLOM FILT RATE Estimated 22.8 mL/min (>60); POTASSIUM 4.8 mmol/L (3.5-5.1)
[2016-12-28 04:53] LABS: BUN/CREATININE RATIO 15.6; CALCIUM SERUM 8.3 mg/dL (8.4-10.2); CREATININE SERUM 2.5 mg/dL (0.6-1.4); GLOM FILT RATE Estimated 23.9 mL/min (>60); POTASSIUM 4.4 mmol/L (3.5-5.1)
[2016-12-29 18:31] LABS: CALCIUM (PTHINTACT) 8.1 mg/dL (8.6-10.4)
== END 2016-12-28 18:54 | DRG 280 ==
LOC: CED 15:35 → CEDOF 20:15 → C4C 12-25 14:45
PROVIDERS: Emergency Medicine; Family Medicine; Internal Medicine; Internal Medicine Nephrology; Nurse Practitioner
PROC: B24BZZZ Ultrasonography of Heart with Aorta (ICD-10-PCS; principal; 2016-12-26)
DX: I21.4 Non-ST elevation (NSTEMI) myocardial infarction (principal); I50.31 Acute diastolic (congestive) heart failure; G92 Toxic encephalopathy; I13.0 Hypertensive heart and chronic kidney disease with heart failure and stage 1 through stage 4 chronic kidney disease, or unspecified chronic kidney disease; N17.9 Acute kidney failure, unspecified; E44.0 Moderate protein-calorie malnutrition; N18.3 Chronic kidney disease, stage 3 (moderate); Z87.891 Personal history of nicotine dependence; E11.649 Type 2 diabetes mellitus with hypoglycemia without coma; Z79.4 Long term (current) use of insulin; J44.9 Chronic obstructive pulmonary disease, unspecified; F01.50 Vascular dementia, unspecified severity, without behavioral disturbance, psychotic disturbance, mood disturbance, and anxiety; I73.9 Peripheral vascular disease, unspecified; I65.23 Occlusion and stenosis of bilateral carotid arteries; E66.9 Obesity, unspecified; Z68.33 Body mass index [BMI] 33.0-33.9, adult; F32.9 Major depressive disorder, single episode, unspecified; N39.41 Urge incontinence; R80.9 Proteinuria, unspecified; E78.5 Hyperlipidemia, unspecified; I07.1 Rheumatic tricuspid insufficiency; M19.90 Unspecified osteoarthritis, unspecified site; M10.9 Gout, unspecified; E03.9 Hypothyroidism, unspecified; R62.7 Adult failure to thrive; Z91.81 History of falling; Z86.73 Personal history of transient ischemic attack (TIA), and cerebral infarction without residual deficits; Z85.038 Personal history of other malignant neoplasm of large intestine; Z92.21 Personal history of antineoplastic chemotherapy; Z90.710 Acquired absence of both cervix and uterus; Z98.49 Cataract extraction status, unspecified eye; Z83.3 Family history of diabetes mellitus; Z82.49 Family history of ischemic heart disease and other diseases of the circulatory system
CPT/HCPCS: 36415; 70450; 71010; 71020; 76770; 80048; 80053; 80061; 80076; 81003; 82310; 82550; 82553; 82570; 82607; 82746; 82947; 83036; 83735; 83880; 83970; 84100; 84156; 84443; 84484; 85025; 85610; 87804; 93005; 93306; 93880; 94640; 94760; 97116; 97163; 97166; 97530; 97535; 99285; G8978-GP; G8979-GP; G8980-GP; G8987-GO; G8988-GO; J0360; J1815; J1940

== ENCOUNTER 2017-04-16 18:26 | Emergency (ER) | payer MEDICARE, OTHER ==
--- NOTE | ~2017-04-16 | CR72 ---
[facility] A Service of [facility] RADIOLOGY TEXT RESULTS PATIENT: LUCILA BLOCK LOCATION: [facility] : 37 UNIT #: [id number] AGE: [address]: Thai Mercedes MD SEX: F ORDER DR: [id number] [facility] [address] [place], [place] [address] [id number] MR#: [id number] Acc #: [id number] NAME: LUCILA BLOCK : 1935 SEX: F STUDY DATE/TIME: 04/16/2017 19:37 UNIT: [facility] ROOM: STUDY DESCRIPTION: CR Chest Single View Portable Attending Physician: Thai Mercedes M.D. Ordering Physician: Thai Mercedes M.D. Primary Care Physician: Todd Montenegro MEDICAL IMAGING REPORT This report is preliminary unless electronic signature is present EXAM Chest portable 04/16/2017 1937 hours HISTORY 81-year-old woman with history of colon carcinoma with complaint of low blood sugar today. COMPARISON 12/26/2016. FINDINGS Single upright portable view is limited by leftward rotation. There is cardiomegaly felt unchanged. There is a tortuous atherosclerotic aorta which appears stable. The right lung is well expanded and clear. The left upper lobe is clear. I believe there is no left retrocardiac density; however, the left base is difficult to assess given the cardiomegaly and the degree of rotation. IMPRESSION The patient is rotated with persistent cardiomegaly similar to 12/26/2016. The right lung is clear and the left upper lobe is clear. I believe there is no definite left retrocardiac density; however, the retrocardiac left lower lobe is difficult to assess given the degree of cardiomegaly and rotation. Dictated by... Brooke Blount M.D. THIS IS AN ELECTRONICALLY VERIFIED REPORT Brooke Blount M.D. at 04/18/2017 9:34 AM NATASHAM/magens [facility] A Service of [facility] RADIOLOGY TEXT RESULTS PATIENT: LUCILA BLOCK LOCATION: [facility] #: [id number] : 37 UNIT #: [id number] AGE: [address]: Thai Mercedes MD SEX: F ORDER DR: TD: 04/17/2017 10:53 JOB #: [id number] MEDICAL IMAGING REPORT Page 1 of 1 COPY
--- NOTE | ~2017-04-16 | EKG ---
PATIENT: LUCILA BLOCK UNIT #: [id number] Ventricular Rate: 52 BPM Atrial Rate: 52 BPM P-R Interval: 162 ms QRS Duration: 64 ms Q-T Interval: 474 ms QTC Calculation(Bezet): 440 ms P [place]: 63 degrees Calculated R [place]: 90 degrees Calculated T [place]: 96 degrees Diagnosis Line: Sinus bradycardia Diagnosis Line: Rightward axis Diagnosis Line: Nonspecific T wave abnormality Diagnosis Line: Abnormal ECG Diagnosis Line: When compared with ECG of 27-DEC-2016 06:33, Diagnosis Line: No significant change was found Diagnosis Line: Confirmed by OMARI LORENZO MD ([id number]) on Diagnosis Line: 04/17/2017 10:07:42 AM INTERPRETING MD: ALFIE
[~2017-04-16 18:26] MED LIST changes: +BAYER CHEWABLE81 MG PO; +BENADRYL25 M1 PO; +CARVEDILOL25 MG PO; +DITROPAN5 MG PO; +DONEPEZIL HCL10 MG PO; +ESCITALOPRAM OX10 MG PO; +IBUPROFEN; +IBUPROFEN PO; +NORVASC2.5 MG PO; +NOVOLOG7030 SUBQ; +RESTASIS32 EA OU
[2017-04-16 19:51] LABS: BASOPHIL# 0.1 X10e3 (0-0.3); BASOPHIL% 1.3 % (0-2.5); EOSINOPHIL# 0.2 X10e3 (0-0.7); EOSINOPHIL% 5.1 % (0.0-7.0); HEMOGLOBIN 15.1 gm/dL (12.0-16.0); LYMPHOCYTE# 0.8 X10e3 (1.0-3.5); LYMPHOCYTE% 15.9 % (17.0-45.0); MEAN CELL VOLUME 85.5 FL (83-96); MEAN CORPUSCULAR HGB CONC 32.7 g/dL (30-36); MEAN PLATELET VOLUME 8.5 FL (6.5-11.5); MONOCYTE# 0.3 X10e3 (0-1.0); MONOCYTE% 6.2 % (3.0-12.0); NEUTROPHIL# 3.5 X10e3 (1.5-7.1); NEUTROPHIL% 71.5 % (40-75); PLATELET COUNT 187 X10e3 (140-420); RED BLOOD COUNT 5.38 X10e (3.90-5.30); RED CELL DISTRIBUTION WIDTH 15.5 % (11.0-15.5); WHITE BLOOD COUNT 4.9 X10e3 (4.0-10.5)
[2017-04-16 19:52] LABS: POC - CKMB 3.6 ng/mL (0.0-7.9); POC - TROPONIN <0.05 ng/mL (<=0.05)
[2017-04-16 19:55] LABS: DIFF IND NO
[2017-04-16 20:07] LABS: ALBUMIN SERUM 3.1 g/dL (3.5-5.0); BILIRUBIN, DIRECT 0.1 mg/dL (0.0-0.2); BILIRUBIN,INDIRECT 0.5 mg/dL (0.0-0.9); BILIRUBIN,TOTAL 0.6 mg/dL (0.2-2.0); BUN/CREATININE RATIO 14.28; CALCIUM SERUM 8.9 mg/dL (8.4-10.2); CREATININE SERUM 2.1 mg/dL (0.6-1.4); GLOM FILT RATE Estimated 25.3 mL/min (>60); POTASSIUM 4.6 mmol/L (3.5-5.1); PROTEIN TOTAL SERUM 6.2 g/dL (6.0-8.3)
[2017-04-16 20:28] LABS: URINE SOURCE CLEAN CATCH
[2017-04-16 20:33] LABS: URINE APPEARANCE CLOUDY; URINE BILIRUBIN NEG (NEG); URINE BLOOD 1+ (NEG); URINE COLOR YELLOW; URINE GLUCOSE NEG (NEG); URINE KETONE NEG (NEG); URINE LEUKOCYTE ESTERASE TRACE (NEG); URINE NITRATE NEG (NEG); URINE PH 5.5 (5-8); URINE PROTEIN 3+ (NEG); URINE SPECIFIC GRAVITY 1.017 (1.003-1.035); URINE UROBILINOGEN 0.2 MG/DL (NEG)
[2017-04-16 20:36] LABS: CULTURE INDICATED? YES; URINE BACTERIA AUWI 4+ (NEGATIVE); URINE SQUAMOUS EPITHELIAL CELL NONE SEEN /[HPF]
== END 2017-04-16 21:59 | disposition home or self-care (01) ==
LOC: CED 18:26
PROVIDERS: Emergency Medicine
DX: E11.649 Type 2 diabetes mellitus with hypoglycemia without coma (principal); I10 Essential (primary) hypertension; N30.00 Acute cystitis without hematuria; I25.2 Old myocardial infarction; E78.5 Hyperlipidemia, unspecified; Z87.440 Personal history of urinary (tract) infections; Z90.49 Acquired absence of other specified parts of digestive tract; J44.9 Chronic obstructive pulmonary disease, unspecified; Z79.4 Long term (current) use of insulin
CPT/HCPCS: 36415; 71010; 80048; 80076; 81003; 82553; 82947; 84484; 85025; 87086; 87088; 87186; 93005; 96365; 96375; 99284; J0696

== ENCOUNTER 2017-06-09 15:20 | Inpatient (IN) | payer MEDICARE, OTHER ==
[~2017-06-09] VITALS: Ht 170.2 cm; Wt 80.4 kg
--- NOTE | ~2017-06-09 | DS ---
Unit #: [id number] #: [id number] Patient: LUCILA BLOCK [id number] [address] [place], [place] [address] [id number] I MR#: [id number] NAME: LUCILA BLOCK. ROOM: [facility] Age: 81 Sex: F Admission Date: 06/09/2017 : 1935 Discharge Date: Attending Physician: Claribel Bradshaw M.D. Primary Care Physician: Vitaly Montenegro M.D. DISCHARGE SUMMARY FINAL DIAGNOSES 1. Acute/subacute cerebrovascular accident. 2. Aphasia. 3. Generalized weakness. 4. Bradycardia. SECONDARY DIAGNOSES 1. Diabetes mellitus. 2. History of transient ischemic attack. 3. Hypertension. 4. Hyperlipidemia. 5. Peripheral vascular disease. 6. Hypothyroidism. 7. Vascular dementia. CONSULTS 1. Dr. Man, neurology. 2. Dr. Amaya, cardiology. HOSPITAL COURSE Patient is a 81-year-old, -Indian female who presented with stroke-like symptoms. She was evaluated and admitted through the emergency room. She was seen by Dr. Man and his assessment noted that the findings on imaging was possible incidental; however, he did recommend checking a 2D echo and if the echo was negative to continue with dual antiplatelet with Lipitor 80 mg at discharge. Prior to discharge, she had bradycardia for which she was seen by cardiology. Cardiology did discontinue her clonidine and made adjustments to her medications. For possible UTI, urine culture did grow a mixed growth of gram-positive and gram-negative nia. Patient has been afebrile for the past 24 hours. She was evaluated suitable and stable for discharge. A urine culture was not repeated; however, will discharge patient on Ceftin 250 mg p.o. b.i.d. x5 days. DISCHARGE MEDICATION 1. Floranex 1 p.o. b.i.d. x1 month. 2. Lexapro 10 mg p.o. every day. 3. Claritin 5 mg p.o. at bedtime. 4. Lipitor 80 mg p.o. at bedtime. 5. Amlodipine 10 mg p.o. every morning. 6. Aricept 10 mg p.o. every day. 7. Ditropan XL 5 mg p.o. at bedtime. 8. Hydralazine 25 mg p.o. 3 times a day. 9. Aspirin 81 mg p.o. every day and per neurology recommendation. Unit #: [id number] #: [id number] Patient: LUCILA BLOCK 10. Plavix 75 mg p.o. every day. DISPOSITION She will be discharged to rehab. Antiplatelet therapy, which includes aspirin, Plavix, and high-dose Lipitor at 80 mg p.o. daily. Time spent coordinating discharge is about 40 minutes. Dictated by... Marcelle Leyva/imelda TD: 06/14/2017 13:22 JOB #: [id number] DISCHARGE SUMMARY Page 1 of 1 X Yodit Pacheco MD X DISCHARGE SUMMARY
--- NOTE | ~2017-06-09 | CT72 ---
[facility] RADIOLOGY TEXT RESULTS PATIENT: LUCILA BLOCK LOCATION: [facility] 307-01 : 37 UNIT #: [id number] AGE: [address]: Claribel Bradshaw MD SEX: F ORDER DR: [id number] [facility] [address] [place], [place] [address] [id number] I MR#: [id number] Acc #: [id number] NAME: LUCILA BLOCK. : 1935 SEX: F STUDY DATE/TIME: 06/09/2017 15:35 UNIT: SEDOF ROOM: [facility] STUDY DESCRIPTION: CT Head Wo Contrast Stroke Attending Physician: Irene Hernandez M.D. Ordering Physician: Osvaldo Trejo M.D. Primary Care Physician: Vitaly Montenegro M.D. MEDICAL IMAGING REPORT This report is preliminary unless electronic signature is present EXAM Noncontrast head CT. HISTORY Aphasia, generalized weakness, onset today. COMPARISON 12/24/[address] exam was performed with one or more of the following radiation dose reduction techniques: Automatic exposure control, adjustment of mA and/or kV according to patient size, and iterative reconstruction. Axial noncontrast imaging of the brain demonstrates mild generalized atrophy. Multiple foci of decreased attenuation are seen within the basal ganglia and periventricular white matter most likely represent either small lacunar infarcts or evidence of chronic microvascular disease. No large vessel infarct. Probable areas of decreased attenuation within both thalami. No hemorrhage. No abnormal extraaxial fluid collection. No mass or mass effect. Extensive calcification seen within the right vertebral artery. Bony calvarium, skull base, mastoids unremarkable. IMPRESSION 1. No definite acute intracranial abnormality identified. Clearly, no large vessel infarct identified and no hemorrhage. 2. Generalized atrophy with multiple foci of decreased attenuation within the basal ganglia, thalami and periventricular white matter which may represent the sequelae of chronic microvascular disease and small lacunar infarcts. It has not significantly changed from 12/24/2016. [facility] RADIOLOGY TEXT RESULTS PATIENT: LUCILA BLOCK LOCATION: [facility] 307-01 : 37 UNIT #: [id number] AGE: [address]: Claribel Bradshaw MD SEX: F ORDER DR: Dictated by... Talib Yarbrough M.D. THIS IS AN ELECTRONICALLY VERIFIED REPORT Talib Yarbrough M.D. at 06/10/2017 6:53 PM DEEPIKA/peg TD: 06/09/2017 19:42 JOB #: [id number] MEDICAL IMAGING REPORT Page 1 of 1 COPY
--- NOTE | ~2017-06-09 | CO ---
Unit #: [id number] #: [id number] Patient: LUCILA WILLARD [id number] [address] [place], [place] [address] [id number] I MR#: [id number] NAME: LUCILA WILLARD. ROOM: 307 Age: 81 Sex: F Admission Date: 06/09/2017 : 1935 Attending Physician: Claribel Bradshaw M.D. Primary Care Physician: Todd Montenegro Consultation Date: 06/13/2017 CONSULTATION REPORT HISTORY OF PRESENT ILLNESS This is a 81-year-old female with history of hypertension, diabetes, hyperlipidemia, peripheral vascular disease, carotid disease, hypothyroidism, chronic kidney disease, COPD, had a non-STEMI back in December of this year with medical management. She has some vascular dementia. She lives at home with her granddaughter who is her caregiver. The patient has history of previous TIAs. According to information, the patient came in with increased weakness and was having some loose stools over about 2 weeks. While she was in the ER, she became aphasic. They called code stroke. Dr. Man was consulted and she was found to have a very small basal ganglia and one in the COPIER REPAIR TECHNICIAN territory cerebellar type lesions probably an acute to subacute stroke on the left side, this was noted on the MRI. The patient was started on anticoagulation heparin. She has had a Holter monitor placed, waiting a 2D echo. The patient's blood pressure has been elevated when she was at home on the carvedilol 25 mg b.i.d., also on Norvasc 2.5 mg. Since admission, she has remained on the carvedilol and they added on clonidine 0.2 mg b.i.d. along with increasing Norvasc overnight and this morning, her heart rate has been decreasing down in the 40s and then staying in the 50s. She does remain in sinus bradycardia. Cardiology has been consulted to assist with evaluation and management. On interviewing exam with the patient, she denies any chest pain, palpitations, or dizziness. She is answering questions fairly appropriately, but has some occasional poor memory recall. As far as seeing Cardiology, we saw her in December for a non-STEMI and they opted for medical management due to her kidney issues, also her echo at that time showed 60% to 65%. She did have a zrxi-ob-ecaartkr pericardial effusion and moderate to severe left ventricular hypertrophy. Cardiology has been consulted to assist with evaluation and management. PAST MEDICAL HISTORY 1. Hypertension. 2. Diabetes mellitus, type 2. 3. Hyperlipidemia. 4. Degenerative joint disease and gout. 5. Peripheral vascular disease and peripheral arterial disease. 6. History of bilateral carotid disease, right and the left has 50% to 69% stenosis. 7. Hypothyroidism. 8. Chronic kidney disease. 9. COPD. 10. History of TIAs in the past. 11. History of colon cancer. Unit #: [id number] #: [id number] Patient: LUCILA WILLARD 12. It is reported in December that she had a cardiac cath at [facility] within the last few years that were essentially normal, but details are unavailable. 13. Dementia. 14. In 12/2016, she had an admission for non-STEMI and acute kidney injury and toxic metabolic encephalopathy and hypoglycemia, they opted for medical management. 15. Lives with granddaughter. 16. Reformed smoker. PAST SURGICAL HISTORY 1. Colon resection for colon cancer. 2. Cataract surgery. 3. Hysterectomy. 4. Appendectomy. HOME MEDICATIONS Carvedilol 25 mg p.o. b.i.d., donepezil 10 mg p.o. daily, aspirin 81 mg p.o. daily, Lexapro 10 mg p.o. daily, Norvasc 2.5 mg p.o. daily, Ditropan XL 5 mg p.o. at bedtime. ALLERGIES No known drug allergies. SOCIAL HISTORY The patient lives with her granddaughter who helps with her care. She ambulates with a cane. She is very sedentary. She is a reformed smoker, quit 34 years ago. No alcohol or illicit drug abuse. FAMILY HISTORY Diabetes and hypertension. REVIEW OF SYSTEMS See details in HPI. PHYSICAL EXAMINATION GENERAL: Ms. Willard is a 81-year-old female, in no acute respiratory distress. She is awake, alert, answers some questions appropriately. She moves all extremities fairly well, but has some weakness in the right side. VITAL SIGNS: Currently blood pressure is 170/68, heart rate is 54, respirations 16, temperature is 98.5, O2 saturations 99% on room air. NECK: Trachea midline. No thyromegaly or lymphadenopathy. Normal carotid upstrokes. No jugular venous distention. HEART: S1 and S2. Regular rate and rhythm. Soft systolic murmur at the left sternal border. LUNGS: Diminished, poor inspiratory effort. ABDOMEN: Soft, nontender, obese. EXTREMITIES: Pedal pulses are palpable. No pedal edema. DIAGNOSTIC STUDIES LABORATORY RESULTS: Glucose is 126, BUN is 32, creatinine 2.4, eGFR is 21.5, sodium 141, potassium 3.9, chloride 113, CO2 of 19, calcium is 8.2, total protein 5.3, albumin 2.8, bilirubin total 0.4, AST 14, ALT 10, alkaline phosphatase is 59. Hemoglobin A1 is 6.6. Fasting lipid profile; cholesterol 199, triglycerides 168, LDL is 125, HDL 40. TSH back in 12/2016 was 1.39. WBCs 5.6, hemoglobin 13.6, hematocrit 41.2, and platelets is 177. Initial cardiac enzymes; CK-MB is 3.0, troponin less Unit #: [id number] #: [id number] Patient: LUCILA WILLARD J than 0.05. Repeat cardiac enzymes; her troponin is less than 0.03. INR is 1.1, PTT is 69.5 today on heparin. Urinalysis is 2+ leukocyte esterase, 3+ protein, 0.2 urobilinogen, 200 to 300 wbc's. Urine culture pending. IMAGING STUDIES: Chest x-ray shows mild diffuse aortic atherosclerotic change, small amount of right basilar atelectasis, degenerative changes of thoracic spine. CT of the head shows no definite acute intracranial abnormality, generalized atrophy with multiple foci of decreased attenuation within the basal ganglia, thalamus, and periventricular white matter could represent chronic microvascular disease and small lacunar infarcts. MRI of the brain without contrast shows several small foci, one in the left anterior thalamus and one in the left posterior periventricular white matter along with under surface of the left cerebellar hemisphere. Could represent small lacunar (small vessel) infarcts, clearly no large infarct is seen. MRA of the head and neck was poor study due to motion artifact limitations. CARDIOVASCULAR STUDIES: EKG on admission shows sinus bradycardia, heart rate 56 beats per minute, rightward axis deviation, nonspecific ST-T wave abnormality, poor R-wave progression, left atrial abnormality, nondiagnostic Q-waves in inferior leads. IMPRESSION 1. New acute stroke in the left anterior thalamus and the left cerebellar region. 2. History of transient ischemic attacks in the past. 3. Sinus bradycardia. 4. Last echo 12/2016 shows LVEF of 60% to 65%, edyqsovw-fu-inyukl left ventricular hypertrophy, impaired relaxation, mild tricuspid regurgitation, mild to moderate pericardial effusion. 5. Reported cardiac cath couple of few years back at [facility], details are unavailable. In 12/2016 admission at [facility] for non-STEMI, acute kidney injury, toxic metabolic encephalopathy, and hypoglycemia, and opted medical management. 6. History of colon cancer, status post colectomy. 7. Hypertension. 8. Diabetes mellitus, type 2. 9. Hyperlipidemia. 10. Peripheral vascular disease and peripheral arterial disease. Has history of carotid disease. 11. Hypothyroidism. 12. Chronic kidney disease. 13. Chronic obstructive pulmonary disease, reformed smoker. 14. Dementia. 15. Lives with granddaughter. PLAN 1. Cardiology consulted to evaluate and manage her bradycardia and help with hypertension. The patient was started on clonidine in addition to continue on the carvedilol, but right now her heart rate is dipped anywhere in the 40s and staying in the low 50s, so we will decrease the Unit #: [id number] #: [id number] Patient: WILLARDLUCILA Favio dose of carvedilol from 25 to 6.25 mg p.o. b.i.d. with parameters. It will be held this morning. 2. Also taper off the clonidine which could also be attributing to some of the bradycardia down from 0.2 mg to 0.1 mg p.o. 3. We will add hydralazine 25 mg p.o. every 6 hours with parameters for better blood pressure management. 4. On exam, there are no signs or symptoms of acute congestive heart failure or unstable angina. Cardiac enzymes are negative. EKG does not show anything acute. 5. Even though she had a 2D echo back in December, awaiting another 2D echo to re-evaluate since she has had a new stroke and also to follow with that. She had a small to moderate pericardial effusion at that time. On exam, it does not appear in any signs or symptoms of tamponade. 6. Her TSH was normal back in 12/2016. 7. The patient's 24-hour Holter will be read. So far in telemetry, there is no indication of atrial fibrillation. 8. Dr. Man with Neurology will make a decision about anticoagulation. He said if there is no evidence of any atrial fibrillation, then he may put her on Plavix and aspirin only, otherwise she may need a stronger anticoagulation that will be determined before discharge. 9. Further recommendations pending per Dr. Amaya. Thank you very much for allowing assist in care. Dictated by... Skylar Hawkins/mahesh TD: 06/14/2017 05:41 JOB #: [id number] CONSULTATION REPORT Page 1 of 1 X Yesy Stratton APRN X CONSULTATION REPORT
--- NOTE | ~2017-06-09 | CO ---
Unit #: [id number] #: [id number] Patient: LUCILA BLOCK [id number] [facility]. [place], [place] [address] [id number] I MR#: [id number] NAME: LUCILA BLOCK. ROOM: 307 Age: 81 Sex: F Admission Date: 06/09/2017 : 1935 Attending Physician: Claribel Bradshaw M.D. Primary Care Physician: Vitaly Montenegro M.D. Consultation Date: 06/10/2017 CONSULTATION REPORT PRIMARY CARE PHYSICIAN Todd Montenegro M.D. REASON FOR CONSULTATION Decreased level of consciousness and inability to speak, incidental anterior-posterior circulation type strokes. PATIENT IDENTIFICATION This is a 80-year-old right-handed female, who was evaluated in room 307. SOURCE OF INFORMATION The patient, medical records, and my discussion with the ER physician. PROBLEM LIST 1. She presented around 3:20 p.m. for complaint of generalized weakness and diarrhea for a month and she was not really talking and there was nothing focal. 2. She has been admitted here in December for non-ST elevation PA. 3. History of TIA. 4. Diabetes and DJD. 5. Gout. 6. Hypertension. 7. Hyperlipidemia. 8. Peripheral vascular disease. 9. Hypothyroidism. 10. Possible dementia, questionable vascular. 11. Colon resection. 12. Cataract surgery. 13. Hysterectomy. 14. Appendectomy. HISTORY OF PRESENT ILLNESS This is a very pleasant 80-year-old right-handed female, who actually presented with generalized weakness initially because she was not talking. Code stroke was entertained, but seeing that there was nothing else focal and CT was negative. I recommended that we need to go for MRI and go from there. The MRI shows very small basal ganglia and one in the CUFF CUTTER territory and some cerebellar type lesions, probably an acute to subacute, on the left side, but they would not explain and the patient has done remarkably well. There was also concern about a posterior circulation narrowing, but the patient has significant motion artifact and unfortunately she cannot go for CTA or MRA with contrast anymore. She has Unit #: [id number] #: [id number] Patient: LUCILA BLOCK done remarkably well. She has been started on anticoagulation. Holter has been placed. I will try to find out if there is an explanation for these bilateral strokes. The question still may be posterior circulation, but the CUFF CUTTER territory is worrisome. Her other workup is in progress. Her previously LDL was 79. White count was 5.6. No falls or injuries. Look at her medication, she was already on aspirin, previously on Plavix and Lipitor when I saw her long time ago, but not anymore. No seizures. No migraine. PAST MEDICAL HISTORY As discussed above. PAST SURGICAL HISTORY As discussed above. ALLERGIES None. HOME MEDICATIONS Coreg 25 mg b.i.d., donepezil 10 mg daily, aspirin 81 mg daily, Lexapro 10 mg daily, Norvasc 2.5 mg, Ditropan 5 mg daily. FAMILY HISTORY Diabetes and hypertension. SOCIAL HISTORY The patient lives with her granddaughter. She walks with a cane. She is a former smoker. No alcohol use. REVIEW OF SYSTEMS CONSTITUTIONAL: Detailed review of system was attempted and because of her memory is a little bit of for problem, though but when asked specifically. She denies any weight issues, fever, chills, rigor, or sweats. She denies any sleep issues and she denies any headache. GASTROINTESTINAL: She denies any nausea, vomiting, diarrhea, constipation anymore, but she came in for a month duration of diarrhea. GENITOURINARY: No genitourinary symptom. BACK: No back problem. PSYCHIATRIC: No psychotic issue. NEUROLOGIC: History of possible prior TIA. No hematologic, dermatologic, or endocrine issues known to me. She has been started on heparin until we know. PHYSICAL EXAMINATION VITAL SIGNS: Temperature 98.7, pulse 59, respirations 16, blood pressure 147/63. She came with blood pressure as high as 197 systolic and 65 diastolic, O2 saturations were 97% to 99%, weight of 174 pounds. BMI was 27. NEUROLOGIC: The patient is actually awake. She is alert and she is fully oriented, though she is confabulating and perseverating, but she is fully oriented. She can name. She can follow commands. No right/left Unit #: [id number] #: [id number] Patient: LUCILA BLOCK Favio confusion. No finger agnosia. Cranial nerve examination demonstrates respond to threats in all banks. Eye movements are conjugate. I did not see any ptosis. I did not see any nystagmus. Extraocular movements are intact. Sensation on the face and scalp are normal. Strength of muscles of facial expression normal. Hearing seemed to be intact bilaterally. Tongue was midline. Uvula was midline. Palate elevation was normal. Head turning and shoulder shrugs were unremarkable. Motor examination demonstrated normal bulk, tone. Strength was essentially 5-/5 all over. No pronator drift or fine motor movement abnormalities were seen. Sensory examination intact for soft touch and pain sensation. No extinction was seen. Romberg was not evaluated. Gait examination deferred. I could not get any reflexes. Toes are equivocal. DIAGNOSTIC STUDIES LABORATORY RESULTS: Random glucose 173 to 188, BUN was 35, creatinine was 2.4, calcium was 7.9, protein was 5.3, albumin was 2.8. CK was 84. Previously, B12 335. Previously, cholesterol 137, LDL 79. White count was 5.6, H and H of 13.9 and 41.7, platelet count was 198. IMAGING STUDIES: Reviewed and as discussed in detail. IMPRESSION This is a very interesting 80-year-old female, who came in for generalized weakness and dehydration type situation and she was not talking and incidentally, we did find that she has these multiple small stroke, but they are all asymptomatic. There is no major vascular abnormality to explain this. I think there may be an artifact, so I will repeat his MRA without contrast because we cannot do it with contrast and cannot do CTA because of renal issues. Heparin has been started unless we find a cause, then I have to go with aspirin and Plavix combination and Lipitor and see how things go. I will keep you informed. I will try to talk to the family. Call me for any other questions, issues, or concerns. Again not a TPN, not an interventional candidate. Any incidental findings and any other issues, please let me know. Dictated by... Marcelle Palomares/mahesh TD: 06/10/2017 18:00 JOB #: [id number] Unit #: [id number] #: [id number] Patient: LUCILA BLOCK CONSULTATION REPORT Page 1 of 1 X Sadaf Man MD CONSULTATION REPORT
--- NOTE | ~2017-06-09 | MR18 ---
[facility] A Service of [facility] RADIOLOGY TEXT RESULTS PATIENT: LUCILA BLOCK LOCATION: [facility] 307- : 37 UNIT #: [id number] AGE: [address]: Claribel Bradshaw MD SEX: F ORDER DR: [id number] [facility] [address] [place], [place] [address] [id number] I MR#: [id number] #: [id number] NAME: LUCILA BLOCK. : 1935 SEX: F STUDY DATE/TIME: 06/09/2017 16:59 [facility]: [facility] STUDY DESCRIPTION: MR Brain Wo Contrast Attending Physician: Irene Hernandez M.D. Ordering Physician: Osvaldo Trejo M.D. Primary Care Physician: Vitaly Montenegro M.D. MRI CENTER REPORT This report is preliminary unless electronic signature is present. EXAM MRI of the brain without contrast. HISTORY Diarrhea for a month. Stroke-like symptoms in triage. Aphasia, generalized weakness today. COMPARISON Noncontrast head CT, 06/09/2017. FINDINGS Multiplanar, multiecho imaging was performed of the brain to include axial diffusion and FLAIR imaging. Examination demonstrates generalized atrophy. Foci of increased T2 signal within the basal ganglia and periventricular white matter are nonspecific but may reflect chronic microvascular disease. Small focus of restricted diffusion is seen in the left anterior thalamus could represent a small acute lacunar infarct. There is also a subtle area of restricted diffusion in the left posterior periventricular white matter, could also represent small vessel infarct. Area of questionable restricted diffusion in the left inferior cerebellar hemisphere could represent an infarct, though this may represent T2 shine through and artifact. Clearly no large vessel infarct identified. No mass or hemorrhage or mass effect or midline shift. Extracranial soft tissues unremarkable. IMPRESSION 1. Several small foci of restricted diffusion, one in the left anterior thalamus, and one in the left posterior periventricular white matter and one along the undersurface of the left cerebellar hemisphere. These could represent small lacunar or small vessel infarcts. Clearly no large infarct is identified and no sizeable area of restricted diffusion is seen. STS. [facility] A Service of [facility] RADIOLOGY TEXT RESULTS PATIENT: LUCILA BLOCK LOCATION: A 307-01 : 37 UNIT #: [id number] AGE: [address]: Claribel Bradshaw MD SEX: F ORDER DR: 2. Generalized atrophy with evidence of chronic diffuse microvascular disease. Dictated by... Talib Yarbrough M.D. THIS IS AN ELECTRONICALLY VERIFIED REPORT Talib Yarbrough M.D. at 06/10/2017 6:54 PM DEEPIKA/bruno TD: 06/10/2017 00:21 JOB #: [id number] MRI CENTER REPORT Page 1 of 1 COPY
--- NOTE | ~2017-06-09 | MR134 ---
[facility] A Service of [facility] & [facility] RADIOLOGY TEXT RESULTS PATIENT: LUCILA BLOCK LOCATION: [facility] 307- : 37 UNIT #: [id number] AGE: [address]: Claribel Bradshaw MD SEX: F ORDER DR: [id number] [facility] [address] [place], [place] [address] [id number] I MR#: [id number] Acc #: [id number] NAME: LUCILA BLOCK. : 1935 SEX: F STUDY DATE/TIME: 06/09/2017 16:59 UNIT: [address] ROOM: [facility] STUDY DESCRIPTION: MR MRA Neck Wo Contrast Attending Physician: Claribel Bradshaw M.D. Ordering Physician: Osvaldo Trejo M.D. Primary Care Physician: Vitaly Montenegro M.D. MRI CENTER REPORT This report is preliminary unless electronic signature is present. EXAM MR angiogram of the neck without contrast dated 06/09/2017 COMPARISON MRA head and MRI brain dated 06/09/2017, MRA neck dated 02/08/2009. HISTORY Diarrhea for a month, aphasia with generalized weakness today. Stroke-like symptoms. Patient has been walking with a cane but is worse today. Fell 3 weeks ago. FINDINGS Source and 3-D reconstruction MIP images of the neck arteries were obtained without contrast. Significant motion artifact limits evaluation. An attempt has been made to characterize after giving allowances to it. The left common carotid artery appears to arise from the innominate artery. The left vertebral artery appears to arise directly from the arch and hence a three-vessel aortic arch is still seen. There is mild narrowing of the caliber of bilateral common carotid arteries in the mid third aspect of the vessels, slightly worse on the right when compared to the left. There is no hemodynamically flow-limiting significant stenosis in bilateral internal carotid artery bulbs per NASCET criteria. Origin of the left external carotid artery is not clearly seen along with its proximal portion. There is flow noted within 0.5 mm of the origin of the left external carotid artery where it has an expected normal caliber. The vertebral arteries demonstrate flow after their extension into the transverse foramen. 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 The proximal portions are difficult to visualize probably related to motion artifact and/or disease. The visualized portions of the vertebral arteries in the transverse foramen appear to be relatively patent. They are almost of similar caliber. The right vertebral artery has limited flow intracranially, new when compared to the prior study. No [facility] A Service of [facility] RADIOLOGY TEXT RESULTS PATIENT: LUCILA BLOCK LOCATION: [facility] 307-01 : 37 UNIT #: [id number] AGE: [address]: Claribel Bradshaw MD SEX: F ORDER DR: aneurysm. IMPRESSION 1. Significant motion artifact limits evaluation. An attempt has been made to characterize after giving allowances to it. 2. No hemodynamically flow-limiting significant stenosis in bilateral internal carotid artery bulbs per NASCET criteria. 3. There appears to be decreased caliber of bilateral common carotid arteries along the mid third segment and extending slightly to the adjacent proximal and distal thirds. It could be related to atherosclerotic disease or artifact. Mild narrowing is seen. 4. The origin and the proximal less than 5 mm portion of the left external carotid artery is not seen. It could be artifactual due to motion or due to severe stenosis. There is normal-appearing flow in the visualized distal portions. 5. The proximal portions of bilateral vertebral arteries are not seen from their origin to their extension to the transverse foramina. Could be motion or related to stenosis. 6. The right V4 segment of the vertebral artery intracranially is not as well seen as the previous study from 2008. Superimposed stenosis in this region is suspected. The bibasilar arterial flow is predominantly contributed by the left vertebral artery. 7. Given these multiple questionable findings, CT angiogram of the head and neck can be considered for further characterization. Dictated by... Abdiaziz Jung M.D. THIS IS AN ELECTRONICALLY VERIFIED REPORT Abdiaziz Jung M.D. at 06/10/2017 5:25 PM CPR/flaco TD: 06/10/2017 08:43 JOB #: [id number] MRI CENTER REPORT Page 1 of 1 COPY
--- NOTE | ~2017-06-09 | EKG ---
PATIENT: LUCILA BLOCK UNIT #: [id number] Ventricular Rate: 56 BPM Atrial Rate: 56 BPM P-R Interval: 162 ms QRS Duration: 80 ms Q-T Interval: 434 ms QTC Calculation(Bezet): 418 ms P Kenyon: 70 degrees Calculated R Kenyon: 106 degrees Calculated T Kenyon: 97 degrees Diagnosis Line: Sinus bradycardia Diagnosis Line: Rightward axis Diagnosis Line: Nonspecific T wave abnormality Diagnosis Line: Abnormal ECG Diagnosis Line: When compared with ECG of 16-APR-2017 19:18, Diagnosis Line: Nonspecific T wave abnormality now evident in Diagnosis Line: Inferior leads Diagnosis Line: Inverted T waves have replaced nonspecific T wave Diagnosis Line: abnormality in Lateral leads Diagnosis Line: Confirmed by OMARI LORENZO MD ([id number]) on Diagnosis Line: 06/10/2017 4:43:07 PM INTERPRETING MD: ALFIE
--- NOTE | ~2017-06-09 | CR72 ---
[facility] A Service of [facility] & [facility] RADIOLOGY TEXT RESULTS PATIENT: LUCILA BLOCK LOCATION: [facility] 307-01 : 37 UNIT #: [id number] AGE: [address]: Claribel Bradshaw MD SEX: F ORDER DR: [id number] [facility] [address] [place], [place] [address] [id number] MR#: [id number] Acc #: [id number] NAME: LUCILA BLOCK. : 1935 SEX: F STUDY DATE/TIME: 06/09/2017 15:55 UNIT: SEDOF ROOM: [facility] STUDY DESCRIPTION: CR Chest Single View Portable Attending Physician: Irene Hernandez M.D. Ordering Physician: Osvaldo Trejo M.D. Primary Care Physician: Vitaly Montenegro M.D. MEDICAL IMAGING REPORT This report is preliminary unless electronic signature is present EXAM Portable chest. HISTORY Shortness of air, onset today. COMPARISON 04/16/2017 FINDINGS Portable of the chest demonstrates cardiomegaly without failure. Mild diffuse aortic atherosclerotic change. No focal airspace disease or consolidation. Small amount of right basilar atelectasis. Degenerative changes of thoracic spine with dextroscoliosis. No pneumothorax. Dictated by... Talib Yarbrough M.D. THIS IS AN ELECTRONICALLY VERIFIED REPORT Talib Yarbrough M.D. at 06/10/2017 6:53 PM Asael TD: 06/09/2017 20:16 JOB #: [id number] MEDICAL IMAGING REPORT Page 1 of 1 COPY
--- NOTE | ~2017-06-09 | HM ---
Unit #: [id number] #: [id number] Patient: LUCILA BLOCK [id number] [address] [place], [place] [address] [id number] I MR#: [id number] NAME: LUCILA BLOCK. : 1935 SEX: F STUDY DATE/TIME: UNIT: C3A U ROOM: 307 STUDY DESCRIPTION: Holer Monitor Attending Physician: Claribel Bradshaw M.D. Primary Care Physician: Vitaly Montenegro M.D. CARDIOLOGY REPORT EXAM Holter Monitor DATE APPLIED 06/09/2017 DATE SCANNED 06/21/[address] Hernandez READ BY Dr. Orlando Santiago. REASON FOR TEST CVA. COMMENTS 1. Underlying rhythm is normal sinus. Minimum recorded heart rate is 41, maximum recorded heart rate of 93 beats per minute with an average heart rate of 57 beats per minute. 2. Very rare premature ventricular contractions are noted mostly isolated, multiform and multifocal in origin. There were 8 premature ventricular couplets. 3. No runs of ventricular tachycardia recorded. 4. Very rare premature atrial contractions are seen with 153 isolated PACs and 45 premature atrial couplets. 5. There area 4 runs of atrial tachycardia, each consisting of 3 beats. Atrial tachycardia rate is 95 beats per minute. There is return to normal sinus rhythm without intervening bradycardia. 6. There is no AV santa block, sinus arrest or sinus pause. There were no runs of tachyarrhythmia. 7. Patient did not report any symptom diary. IMPRESSION 24 hour ambulatory monitoring essentially is within normal limits and shows: 1. Rare PACs with 4 runs of atrial tachycardia each consisting of 3 beats at a rate of 95 per minute. 2. Rare isolated PVCs with 8 couplets and no ventricular tachycardia. Unit #: [id number] #: [id number] Patient: LUCILA BLOCK Dictated by... Marcelle Rodrigez/kim TD: 06/22/2017 09:47 JOB #: [id number] CARDIOLOGY REPORT Page 1 of 1 X Orlando Santiago MD HOLTER MONITOR REPORT
--- NOTE | ~2017-06-09 | HP ---
Unit #: [id number] #: [id number] Patient: LUCILA BLOCK [id number] [facility]. [place], [place] [address] [id number] MR#: [id number] NAME: LUCILA BLOCK ROOM: Age: 81 Sex: F Admission Date: 06/09/2017 : 1935 Attending Physician: Osvaldo Trejo M.D. Primary Care Physician: Vitaly Montenegro M.D. HISTORY AND PHYSICAL CHIEF COMPLAINT Chief complaint is strokelike in triage, diarrhea for a month. HISTORY OF PRESENT ILLNESS The patient is a 81-year-old female with past medical history of chronic kidney disease, hypertension, hyperlipidemia, peripheral vascular disease, hypothyroidism, diabetes, degenerative joint disease, gout, dementia, colon cancer, who presented to the emergency department for evaluation of the above. The patient has apparently been increasingly generally weak for the past three to four days. She has had diarrhea. She states that it is "constant." She denies abdominal pain; no vomiting. She has not had any fever. She denies any recent antibiotics or change in mediations. The patient's daughter came to visit her today and she was concerned and so brought her to the emergency department for further evaluation. Upon arrival in triage, the patient became aphasic. A Code Stroke was called. CT of the head was done and showed nothing acute. The symptoms then resolved. She had an MRI that showed restricted diffusion, likely small vessel infarcts involving the left anterior thalamus as well as the left cerebellum. Dr. Man recommended anticoagulation and Holter monitor. She is being admitted to [facility] for evaluation and further treatment. PAST MEDICAL HISTORY 1. Admission to [facility] December 24 through the 2016 for non-ST elevation myocardial infarction. She was seen in consultation by Cardiology. A 2D echocardiogram was done and showed an ejection fraction of 60% to 65% with moderate to severe concentric left ventricular hypertrophy. Impaired relaxation was noted. Mild tricuspid regurgitation. Mild to moderate pericardial effusion. Given the patient's other medical conditions, medical management was recommended by Cardiology. 2. History of TIA. 3. Diabetes. 4. Degenerative joint disease. 5. Gout. 6. Hypertension. 7. Hyperlipidemia. 8. Peripheral vascular disease. 9. Hypothyroidism. 10. Dementia, likely vascular in nature. The patient may not know the date at baseline. Unit #: [id number] #: [id number] Patient: LUCILA BLOCK 11. Colon cancer, status post resection and chemotherapy. PAST SURGICAL HISTORY Surgical history: 1. Colon resection. 2. Cataract surgery. 3. Hysterectomy. 4. Appendectomy. SOCIAL HISTORY The patient lives with her granddaughter. She walks with a cane. She is a former smoker. There is no alcohol use. FAMILY HISTORY Family history is notable for diabetes and hypertension. ALLERGIES No known allergies. HOME MEDICATIONS 1. Coreg 25 mg b.i.d. 2. Donepezil 10 mg daily. 3. Aspirin 81 mg daily. 4. Lexapro 10 mg daily. 5. Norvasc 2.5 mg daily. 6. Ditropan 5 mg daily. REVIEW OF SYSTEMS A complete review of systems is negative except as indicated in the HPI. DIAGNOSTIC TESTS CARDIOVASCULAR: EKG shows sinus bradycardia with a rate of 56 beats per minute. IMAGING: CT of the head shows nothing acute. MRI of the brain showed restricted diffusion, likely small vessel infarcts. MRA is pending. LABORATORY: Complete blood count notable for hemoglobin and hematocrit of 15.2 and 46.1 respectively. Troponin is less than 0.05. INR is 1.1. Comprehensive metabolic panel notable for chloride of 112, CO2 21, glucose 188, BUN and creatinine 38 and 2.5 respectively, total protein 5.9, albumin is 3. PHYSICAL EXAMINATION VITAL SIGNS: Temperature is 97.7. Pulse 59. Respirations 16. Blood pressure 175/66. Oxygen saturation 99% on room air. GENERAL: The patient is an -[place] female who is awake and alert, in no acute distress. HEENT: The head is atraumatic. Mucous membranes are moist. NECK: Is supple. Trachea is midline. CARDIOVASCULAR: Is regular rate and rhythm. LUNGS: Are clear to auscultation bilaterally with no increased work of breathing. ABDOMEN: Is soft, nontender, with bowel sounds present all four quadrants. Unit #: [id number] #: [id number] Patient: LUCILA BLOCK EXTREMITIES: Are nontender with no pedal edema. NEURO: The patient is oriented to person and place. She thought it was 1916 but knew it was May. Speech is back to baseline. There is no appreciable pronator drift. Staff Field Engineer strength is symmetric. PSYCH: Mood and affect are normal. The patient is cooperative. SKIN: Of examined areas is warm and dry. ASSESSMENT The patient is a 81-year-old female with 1. Cerebrovascular accident. MRI is showing restricted diffusion in left anterior thalamus and cerebellum, likely small vessel infarcts. The ER physician, Dr. Trejo, spoke with Dr. Man who recommended anticoagulation. 2. General weakness. 3. Diarrhea. 4. Gjfbu-ju-aqnglfj kidney disease. The patient's baseline creatinine is around 2.2. Creatinine is 2.5 today. She had been having diarrhea. 5. Hypertension. 6. Hyperlipidemia. 7. Peripheral vascular disease. 8. Hypothyroidism. 9. Diabetes. The patient's hemoglobin A1C was 5.8 on December 24, 2016. 10. Degenerative joint disease. 11. Gout. 12. Vascular dementia. 13. Colon cancer. 14. Former smoker. PLAN 1. Admit to intermediate level. 2. N.p.o. until speech evaluation. Speech therapy to evaluate and treat. 3. D5 half normal saline at 75 mL an hour. 4. Neuro checks. 5. Holter monitor. 6. Heparin drip, low intensity protocol. No bolus ever. 7. Serial cardiac enzymes. 8. Consult Dr. Man regarding stroke. 9. Strict protocol per Neurology. 10. Stool studies including ova and parasites, C. diff., culture and sensitivity. 11. Low dose sliding scale insulin with Accu-Cheks. 12. Repeat labs in the morning. 13. P.r.n. Zofran. 14. Additional workup and consultants based on above. Dictated by Marcelle Braga TD: 06/09/2017 19:33 JOB #: [id number] Unit #: [id number] #: [id number] Patient: LUCILA BLOCK HISTORY AND PHYSICAL Page 1 of 1 X Irene Hernandez MD HISTORY AND PHYSICAL
--- NOTE | ~2017-06-09 | MR122 ---
[facility] A Service of [facility] & [facility] & [facility] RADIOLOGY TEXT RESULTS PATIENT: LUCILA WILLARD LOCATION: C3[facility] 307- : 37 UNIT #: [id number] AGE: [address]: Claribel Bradshaw MD SEX: F ORDER DR: [id number] [facility] [address] [place], [place] [address] [id number] I MR#: [id number] Acc #: [id number] NAME: LUCILA WILLARD. : 1935 SEX: F STUDY DATE/TIME: 06/09/2017 16:59 UNIT: A PCU [facility] STUDY DESCRIPTION: MR MRA Head Wo Contrast Attending Physician: Claribel Bradshaw M.D. Ordering Physician: Osvaldo Trejo M.D. Primary Care Physician: Vitaly Montenegro M.D. MRI CENTER REPORT This report is preliminary unless electronic signature is present. EXAM MR angiogram of the head without contrast dated 06/09/2017. COMPARISON MR angiogram of the head without contrast dated 02/08/2009. HISTORY Sudden onset of aphasia, generalized weakness today. Stroke-like symptoms. Diarrhea for 2 weeks, worse in the last week. Patient fell 3 weeks ago. FINDINGS Source and 3-D reconstruction MIP images of the [place] was obtained without contrast. Motion artifact limits evaluation. Mild irregularities are noted in bilateral intracranial internal carotid arteries. Visualized bilateral anterior and middle cerebral arteries do not demonstrate any severe stenosis or complete occlusion. They appear to be symmetrical and relatively normal after giving allowances to motion. Well-defined anterior communicating artery is not seen. Left PCom is noted but well-defined right PCom is not seen. The basilar artery is of small caliber and it is predominantly fed by the left vertebral artery. Vertebrobasilar junction is not clearly seen and the proximal portion of the basilar artery, either the proximal third or proximal half, is not seen either. There is also decrease in flow of the left vertebral artery as it extends intracranially. The right vertebral artery is not seen, except for focal signal involving a less-than 5 mm short segment in the presumed distal V4 segment. IMPRESSION 1. Limited study. Motion artifact is seen. 2. Anterior circulation does not demonstrate any severe stenosis. 3. Abnormal posterior circulation. 4. The proximal third or proximal half of the basilar artery is not STS. [facility] A Service of [facility] & [facility] & [facility] RADIOLOGY TEXT RESULTS PATIENT: LUCILA WILLARD LOCATION: C3[facility] 307-01 : 37 UNIT #: [id number] AGE: [address]: Claribel Bradshaw MD SEX: F ORDER DR: seen. There is either near complete to complete occlusion of this portion. The remaining distal aspect of the basilar artery is, however seen with flow in bilateral posterior cerebral arteries. Left PCom is present. Right PCom is not seen. 5. The left vertebral artery decreases in caliber as it extends towards the basilar artery. The right vertebral artery is not well seen, except for a very short, less-than 5 mm portion in the presumed distal V4 segment. 6. CT angiogram of the head would be further useful for characterizing posterior circulation abnormalities. These findings appear to have worsened when compared to the prior MRA of the head and neck. 7. CT of the head and neck is suggested for further evaluation. Dictated by... Abdiaziz Jung M.D. THIS IS AN ELECTRONICALLY VERIFIED REPORT Abdiaziz Jung M.D. at 06/10/2017 5:25 PM CPR/psc TD: 06/10/2017 09:28 JOB #: [id number] MRI CENTER REPORT Page 1 of 1 COPY
[2017-06-09] MEDS ORDERED: PATIENT'S PHARMACY (15:55)
[2017-06-09] MEDS ORDERED: CARVEDILOL25 MG PO (15:55)
[2017-06-09] MEDS ORDERED: ASPIRIN81 M2 PO (15:56)
[2017-06-09] MEDS ORDERED: DITROPAN XL PO (15:56)
[2017-06-09] MEDS ORDERED: NORVASC2.5 MG PO (15:56)
[2017-06-09] MEDS ORDERED: DONEPEZIL HCL10 MG PO (15:56)
[2017-06-09] MEDS ORDERED: LEXAPRO PO (15:56)
[2017-06-09 16:10] LABS: BASOPHIL% 0.6 % (0-2.5); EOSINOPHIL# 0.2 X10e3 (0-0.7); EOSINOPHIL% 2.9 % (0.0-7.0); HEMATOCRIT 46.1 % (35.0-45.0); HEMOGLOBIN 15.2 gm/dL (12.0-16.0); LYMPHOCYTE# 0.6 X10e3 (1.0-3.5); LYMPHOCYTE% 8.3 % (17.0-45.0); MEAN CELL VOLUME 86.3 FL (83-96); MEAN CORPUSCULAR HEMOGLOBIN 28.3 PG (28-34); MEAN CORPUSCULAR HGB CONC 32.9 g/dL (30-36); MEAN PLATELET VOLUME 8.6 FL (6.5-11.5); MONOCYTE# 0.6 X10e3 (0-1.0); NEUTROPHIL# 5.6 X10e3 (1.5-7.1); NEUTROPHIL% 79.2 % (40-75); PLATELET COUNT 217 X10e3 (140-420); RED BLOOD COUNT 5.35 X10e (3.90-5.30); RED CELL DISTRIBUTION WIDTH 15.5 % (11.0-15.5); WHITE BLOOD COUNT 7.1 X10e3 (4.0-10.5)
[2017-06-09 16:11] LABS: DIFF IND NO
[2017-06-09 16:15] LABS: POC - TROPONIN <0.05 ng/mL (<=0.05)
[2017-06-09 16:18] LABS: INR 1.1; PARTIAL THROMBOPLASTIN TIME 28.1 SECONDS (23.5-31.3); PROTHROMBIN TIME (PATIENT) 11.6 SECONDS (10.0-11.7)
[2017-06-09 16:53] LABS: BILIRUBIN, DIRECT 0.1 mg/dL (0.0-0.2); BILIRUBIN,INDIRECT 0.7 mg/dL (0.0-0.9); BILIRUBIN,TOTAL 0.8 mg/dL (0.2-2.0); BUN/CREATININE RATIO 15.2; CALCIUM SERUM 8.6 mg/dL (8.4-10.2); CREATININE SERUM 2.5 mg/dL (0.6-1.4); GLOM FILT RATE Estimated 20.5 mL/min (>60); POTASSIUM 4.9 mmol/L (3.5-5.1); PROTEIN TOTAL SERUM 5.9 g/dL (6.0-8.3)
[2017-06-09 23:38] LABS: %MB 4.6 % (0.0-4.0); MB 3.7 ng/ml
[2017-06-10 04:44] LABS: HEMATOCRIT 41.7 % (35.0-45.0); HEMOGLOBIN 13.9 gm/dL (12.0-16.0); MEAN CELL VOLUME 84.9 FL (83-96); MEAN CORPUSCULAR HEMOGLOBIN 28.3 PG (28-34); MEAN CORPUSCULAR HGB CONC 33.3 g/dL (30-36); MEAN PLATELET VOLUME 8.3 FL (6.5-11.5); RED BLOOD COUNT 4.92 X10e (3.90-5.30); RED CELL DISTRIBUTION WIDTH 15.4 % (11.0-15.5); WHITE BLOOD COUNT 5.6 X10e3 (4.0-10.5)
[2017-06-10 05:01] LABS: INR 1.1; PROTHROMBIN TIME (PATIENT) 12.2 SECONDS (10.0-11.7)
[2017-06-10 05:10] LABS: ALBUMIN SERUM 2.8 g/dL (3.5-5.0); BILIRUBIN,TOTAL 0.4 mg/dL (0.2-2.0); BUN/CREATININE RATIO 14.58; CALCIUM SERUM 7.9 mg/dL (8.4-10.2); CREATININE SERUM 2.4 mg/dL (0.6-1.4); GLOM FILT RATE Estimated 21.5 mL/min (>60); POTASSIUM 3.9 mmol/L (3.5-5.1); PROTEIN TOTAL SERUM 5.3 g/dL (6.0-8.3)
[2017-06-10 05:56] LABS: %MB 4.2 % (0.0-4.0); MB 3.5 ng/ml
[2017-06-10 14:19] LABS: CHOLESTEROL 199 mg/dL (0-200); HDL CHOLESTEROL 40 mg/dL (35-95); LDL CHOLESTEROL 125 mg/dL (-130); LDL/HDL RATIO 3 RATIO (0-4); TRIGLYCERIDES 168 mg/dL (10-160)
[2017-06-10 14:40] LABS: FOLATE (FOLIC ACID) 10.7 ng/mL (>5.8)
[2017-06-11 05:19] LABS: HEMATOCRIT 40.3 % (35.0-45.0); HEMOGLOBIN 13.1 gm/dL (12.0-16.0); MEAN CELL VOLUME 86.1 FL (83-96); MEAN CORPUSCULAR HGB CONC 32.5 g/dL (30-36); MEAN PLATELET VOLUME 8.9 FL (6.5-11.5); RED BLOOD COUNT 4.68 X10e (3.90-5.30); RED CELL DISTRIBUTION WIDTH 15.5 % (11.0-15.5); WHITE BLOOD COUNT 4.6 X10e3 (4.0-10.5)
[2017-06-11 06:08] LABS: BUN/CREATININE RATIO 13.33; CALCIUM SERUM 8.2 mg/dL (8.4-10.2); CREATININE SERUM 2.4 mg/dL (0.6-1.4); GLOM FILT RATE Estimated 21.5 mL/min (>60); POTASSIUM 3.9 mmol/L (3.5-5.1)
[2017-06-12 23:13] LABS: URINE SOURCE CLEAN CATCH
[2017-06-12 23:23] LABS: URINE APPEARANCE TURBID; URINE BILIRUBIN NEG (NEG); URINE BLOOD TRACE (NEG); URINE COLOR YELLOW; URINE GLUCOSE NEG (NEG); URINE KETONE NEG (NEG); URINE LEUKOCYTE ESTERASE 2+ (NEG); URINE NITRATE NEG (NEG); URINE PROTEIN 3+ (NEG); URINE SPECIFIC GRAVITY 1.016 (1.003-1.035); URINE UROBILINOGEN 0.2 MG/DL (NEG)
[2017-06-12 23:25] LABS: URINE BACTERIA AUWI NEG (NEGATIVE); URINE SQUAMOUS EPITHELIAL CELL FEW /[HPF]; UWBCS1 AUWI 200-300 (0-5)
[2017-06-13 05:15] LABS: HEMATOCRIT 41.2 % (35.0-45.0); HEMOGLOBIN 13.6 gm/dL (12.0-16.0); MEAN CELL VOLUME 86.1 FL (83-96); MEAN CORPUSCULAR HEMOGLOBIN 28.4 PG (28-34); MEAN PLATELET VOLUME 8.8 FL (6.5-11.5); RED BLOOD COUNT 4.78 X10e (3.90-5.30); RED CELL DISTRIBUTION WIDTH 15.1 % (11.0-15.5); WHITE BLOOD COUNT 5.6 X10e3 (4.0-10.5)
[2017-06-14 14:48] LABS: BUN/CREATININE RATIO 14.09; CALCIUM SERUM 8.6 mg/dL (8.4-10.2); CREATININE SERUM 2.2 mg/dL (0.6-1.4); GLOM FILT RATE Estimated 23.9 mL/min (>60); MAGNESIUM 1.9 mg/dL (1.6-3.0); POTASSIUM 4.5 mmol/L (3.5-5.1)
== END 2017-06-14 21:25 | DRG 65 ==
LOC: CED 15:20 → SEDOF 19:00 → CED 19:39 → SEDOF 19:39 → C3A PCU 21:54 → SEDOF 21:54 → C3A PCU 06-10 08:06
PROVIDERS: Emergency Medicine; Family Medicine; Psychiatry & Neurology Neurology
PROC: B246ZZZ Ultrasonography of Right and Left Heart (ICD-10-PCS; principal; 2017-06-13)
DX: I63.8 Other cerebral infarction (principal); N17.9 Acute kidney failure, unspecified; E11.51 Type 2 diabetes mellitus with diabetic peripheral angiopathy without gangrene; R47.01 Aphasia; R00.1 Bradycardia, unspecified; N39.0 Urinary tract infection, site not specified; F01.50 Vascular dementia, unspecified severity, without behavioral disturbance, psychotic disturbance, mood disturbance, and anxiety; I10 Essential (primary) hypertension; E78.5 Hyperlipidemia, unspecified; I73.9 Peripheral vascular disease, unspecified; E03.9 Hypothyroidism, unspecified; J44.9 Chronic obstructive pulmonary disease, unspecified; Z87.891 Personal history of nicotine dependence; I25.2 Old myocardial infarction; Z98.49 Cataract extraction status, unspecified eye; Z90.710 Acquired absence of both cervix and uterus; Z90.49 Acquired absence of other specified parts of digestive tract; Z79.82 Long term (current) use of aspirin; Z85.038 Personal history of other malignant neoplasm of large intestine; Z92.21 Personal history of antineoplastic chemotherapy; Z83.3 Family history of diabetes mellitus; Z82.49 Family history of ischemic heart disease and other diseases of the circulatory system; M19.90 Unspecified osteoarthritis, unspecified site; M10.9 Gout, unspecified; E86.0 Dehydration; Z86.73 Personal history of transient ischemic attack (TIA), and cerebral infarction without residual deficits
CPT/HCPCS: 36415; 70450; 70544; 70547; 70551; 71010; 80048; 80053; 80061; 80076; 81003; 82550; 82553; 82607; 82746; 82947; 83036; 83735; 84443; 84484; 85025; 85027; 85610; 85730; 87086; 92507; 92523-GN; 92526; 92610; 93005; 93225; 93226; 93306; 97110; 97116; 97162; 97166; 97530; 97535; 99285; G8978-GP; G8979-GP; G8980-GP; G8987-GO; G8988-GO; G8999-GN; G9158-GN; G9186-GN; J0360; J0696; J1644; J1815